=== PATIENT | female | born 2000 | race Caucasian/White ===

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

== ENCOUNTER 2022-05-11 18:01 | Emergency (ER) | payer MEDICAID, SELFPAY ==
[2022-05-11 18:02] VITALS: BP 127/74; PULSE 94; RESP 16; TEMP 36.2; O2SAT 100; BMI 21.9
--- NOTE | 2022-05-11 18:41 | EDS_ITS ---
HPI HPI - Female History of Present Illness Chief Complaint: Abd Pain Detail of Chief Complaint: Pelvic pain and vaginal bleeding. Informant: patient Pain Pain: Positive for Pelvic Pain Onset: Today Timing: Intermittent Quality: Positive for Cramping Current Severity: Mild Maximum Severity: Mild Bleeding Issue: Positive for Vaginal bleeding; Negative for Passing clots or Passing tissue Onset: Today Timing: Intermittent Current Severity: Mild Associated Symptoms Associated Symptoms: Positive for Missed Period; Negative for Dysuria, Frequency, Urgency or Hematuria Sexually: Positive for Active Control: No control P: 0 Ab: 1 Narrative Narrative: 21-year-old female G1, P0 Ab1 with having a miscarriage. Complaining of pelvic pain and vaginal bleeding today. She she missed her last menstrual period and the most recent normal menstrual period was at least 2 months ago. She denies any discharge. No dysuria. No fevers. Prior similar symptoms: Yes Recent Illness/Hospitalization: No PFSH PFSH Medical History Asthma Depression with anxiety PTSD (post-traumatic stress disorder) Substance abuse Home Medications phenazopyridine 200 mg tablet (Pyridium) 200 mg PO TID #10 tabs 05/11/22 [Rx Last Taken Unknown] sulfamethoxazole 800 mg-trimethoprim 160 mg tablet (Bactrim DS) 1 tab PO BID #14 tabs 05/11/22 [Rx Last Taken Unknown] Allergy/AdvReac Type Severity Reaction Status Date / Time Penicillins [PCN] Allergy Anaphylaxis Verified 05/11/22 18:01 Family History Sister Diabetes mellitus type 1 Grandfather Heart disease Social History Smoking Status: Current every day smoker tobacco type: cigarettes alcohol intake: never substance use type: does not use caffeine: Yes what type of physical activity do you participate in: none seatbelt use: sometimes ROS ROS ED ROS Narrative Vaginal bleeding pelvic pain. Review of Systems ROS Unobtainable: Denies due to encephalopathy Constitutional Constitutional ED: Denies chills Eyes Eyes: Denies blurry vision ENT ENT ED: Denies ear pain Cardiovascular Cardiovascular: Denies chest pain Respiratory/Chest Respiratory/Chest: Denies cough Gastrointestinal Gastrointestinal: Denies abdominal pain Genitourinary Genitourinary ED: Denies dysuria Musculoskeletal Musculoskeletal: Denies arthralgias Integumentary Denies abscess Neurologic Neurologic: Denies headache(s) Psychiatric Psychiatric: Denies anxiety Endocrine Endocrinology: Denies heat intolerance Hematologic/Lymphatic Hematologic/Lymphatic: Denies easy bleeding Allergic/Immunologic Allergic/Immunologic ED: Denies mouth swelling EXAM Physical Exam Narrative Exam Narrative: Young female no acute distress vital signs stable afebrile. H EENT exam normal. Lungs clear. Heart regular rhythm. Abdomen soft nondistended normal bowel sounds no peritoneal signs. Tender over suprapubic region. No peritoneal signs. Moving all 4 extremities. Const Vital Signs: 05/11/22 18:02 Temperature 97.2 F L Temperature Source Temporal Pulse Rate 94 Respiratory Rate 16 Blood Pressure 127/74 H Blood Pressure Mean 91 Pulse Ox 100 Oxygen Delivery Method Room Air Positive well nourished and well developed; Negative for obese, cachectic, contractures or unkempt General Appearance ED: well developed; Negative for unkempt, cachectic or contractures Nutritional Appearance: Negative for cachectic or obese HEENT Reports moist mucous membranes Negative for trauma or tenderness Eyes PERRL and EOMs intact bilaterally General Eye ED: Negative for pale conjunctiva or scleral icterus Neck no lymphadenopathy, supple and no JVD Thyroid: Negative for tender Lymph Lymphatic: Negative for other Chest Wall inspection of chest normal and palpation of chest normal Resp normal respiratory effort and clear to auscultation bilaterally Effort and Inspection: Negative for pain with movement Auscultation: Negative for rales, rhonchi or wheezes Cardio regular rate, regular rhythm, S1 normal heart sound, no murmurs and no JVD Rate: Negative for bradycardia Rhythm: Negative for abnormal rhythm GI normal to inspection, nondistended, normoactive bowel sounds, soft to palpation, non-distended and no masses; Negative for non-tender GI Narrative: Suprapubic tenderness only. Auscultation: normoactive bowel sounds Palpation: tender; Negative for guarding or rigid Back/Spine no CVA tenderness General Back: Negative for CVA tenderness Cervical Spine: Negative for cervical spine tenderness Thoracic Spine / Upper Back: Negative for thoracic spinal tenderness Lumbar Spine / Lower Back: Negative for lumbar spinal tenderness Extremity normal to inspection and full ROM General Extremety ED: Negative for edema General Extremity: Negative for edema Neuro oriented x3 Sensorium / Orientation: alert, oriented to person, oriented to place and oriented to time; Negative for confused, lethargic or stuporous Motor Exam: strength 5/5 throughout Psych mental status grossly normal Appearance: Negative for unkempt Attitude: No agitated Speech: No other Skin no rashes or lesions noted General Skin Exam: Negative for jaundice Rashes: No rashes noted MDM MDM MDM Narrative Medical decision making narrative: 21-year-old with vaginal bleeding and pelvic pain. test and UA being obtained. Exam benign. Repeat exam patient doing well. She and I went over her test results. I suspect this is just a heavy period because she missed her last several. I explained to her that the test was negative. She also has urinary tract infection. She will be started on Bactrim for 7 days. Fluids and rest. Follow-up with her assistant refinery operator Dr. Jeanine Flores if not improving. Lab Data Attestation: I reviewed the patient's lab results. Lab results narrative: Urine is consistent with urinary tract infection with positive nitrites Credi red cells 10-25 white cells and 3+ bacteria. A culture be sent. Her test is negative. Labs: Laboratory Results - last 24 hr 05/11/22 19:10 Urine Color Red Urine Clarity Cloudy Urine pH 8.0 Ur Specific [place] 1.010 Urine Protein 500 H Urine Glucose (UA) Normal Urine Ketones 5 H Urine Occult Blood 250 H Urine Nitrite Positive H Urine Bilirubin Negative Urine Urobilinogen 1 H Ur Leukocyte Esterase 100 H Urine RBC > 100 SEEN Urine WBC 10-25 SEEN Ur Squamous Epith Cells 0-5 SEEN Urine Bacteria 3+ Urine Mucus 0 SEEN Urine Test Negative Discharge Plan Triage Chief Complaint: Abd Pain ED Provider: Dirk Sung Dx/Rx/DC Orders Clinical Impression: Urinary tract infection, Abnormal vaginal bleeding Instructions: ED CYSTITIS Female Adult Prescriptions: New sulfamethoxazole-trimethoprim [Bactrim DS] 800-160 mg tablet 1 tab PO BID Qty: 14 0RF phenazopyridine [Pyridium] 200 mg tablet 200 mg PO TID Qty: 10 0RF Primary Care Provider: Care Physician,No Primary Referrals: Jeanine Flores MD [STAFF PHYSICIAN] - 1 Week if not improving Care Physician,No Primary [Primary Care Provider] - Activity Restrictions/Additional Instructions: Plenty of fluids and rest. Tylenol and Motrin for your pain. You have a urinary tract infection will start on antibiotic Bactrim you will take 1 pill twice a day for a week. A urine culture was sent that your doctor can follow-up with if not proving. The vaginal bleeding is most likely shedding the lining of the uterus since she missed her last 1-2 periods. Your test was negative. Follow-up with your assistant refinery operator if the vaginal bleeding is not improving. Disposition Disposition: Home, Self Care
[2022-05-11 19:27] LABS: Mucous, Urine 0 SEEN /hpf (<or=2+)
[2022-05-11 19:35] LABS: Color, Urine Red (Yellow); Glucose, Dipstick Normal (Normal); Ketone-Dipstick 5 mg/dl (Negative); Leukocyte Esterase-Dipstick 100 /ul (Negative); Nitrite-Dipstick Positive (Negative); Occult Blood-Urine 250 /ul (Negative); Protein-Dipstick 500 mg/dl (Negative); Urine Bilirubin Dipstick Negative (Negative); Urine Clarity Cloudy (Clear); Urine Urobilinogen 1 mg/dl (Normal)
[2022-05-11 19:40] LABS: Internal QC Validated? YES +Cl - CLEAR BKGD
[2022-05-11 19:41] LABS: Pregnancy, Urine Negative Negative
[2022-05-11 19:45] LABS: White Blood Cells 10-25 SEEN /hpf (0-5)
[2022-05-11 19:46] LABS: Bacteria 3+ /hpf (None Seen); Red Blood Cells-Urine > 100 SEEN /hpf (0-5); Squamous Epithelial Cells - UA 0-5 SEEN /hpf (5-10)
--- NOTE | 2022-05-11 20:21 | CM.ED ---
SW Note Referral Source: Case Find Referral Reason: No Primary Care Physician (PCP) SW reviewed chart and noted that patient has no PCP. SW provided patient with list of [facility] and [facility] Physician List for reference. SW also provided patient with handout ?Where to go When?. No other issues or concerns voiced at this time. SW remains available for any additional needs. Plan: Provided patient with PCP information Marcela MCKEON
[2022-05-11] MEDS: Smz/Tmp Ds Tablet 1 TABLET PO (21:27)
== END 2022-05-11 21:31 | disposition home or self-care (01) ==
PROVIDERS: Emergency Provider Emergency Medicine; Visit Provider Emergency Medicine
DX: N30.90 Cystitis, unspecified without hematuria (principal); N93.9 Abnormal uterine and vaginal bleeding, unspecified; F17.210 Nicotine dependence, cigarettes, uncomplicated
CPT/HCPCS: 81001; 81025; 99283

== ENCOUNTER 2022-05-18 23:10 | Emergency (ER) | payer MEDICAID, SELFPAY ==
[2022-05-18 23:11] VITALS: BP 124/90; PULSE 86; RESP 16; TEMP 36.5; O2SAT 100; BMI 21.8
--- NOTE | 2022-05-18 23:32 | EX.ED.DYSGE1 ---
HPI History of Present Illness Chief Complaint: Substance Abuse Informant: patient Narrative Narrative: Patient presents requesting detox. She uses up to a gram a day of heroin and fentanyl and also occasionally meth. Really does not drink alcohol. She does inject. She denies any history with infections from injection sites. Her last use was about 4 hours ago. Her last detox was in February. She states clean until about a month ago. Denies chance of being . Denies any physical complaints. Does not feel like she is in withdrawal at this point. [facility] Medical History (Updated 05/19/22 @ 00:00 by Background Daemon) Anxiety Asthma Bipolar disorder Depression Depression with anxiety PTSD (post-traumatic stress disorder) Smoker Substance abuse Home Medications phenazopyridine 200 mg tablet (Pyridium) 200 mg PO TID #10 tabs 05/11/22 [Rx Last Taken Unknown] sulfamethoxazole 800 mg-trimethoprim 160 mg tablet (Bactrim DS) 1 tab PO BID #14 tabs 05/11/22 [Rx Last Taken Unknown] Allergy/AdvReac Type Severity Reaction Status Date / Time Penicillins [PCN] Allergy Anaphylaxis Verified 05/18/22 23:13 Family History Sister Diabetes mellitus type 1 Grandfather Heart disease Social History Smoking Status: Current every day smoker tobacco type: cigarettes alcohol intake: never substance use type: does not use caffeine: Yes what type of physical activity do you participate in: none seatbelt use: sometimes ROS ROS ED Constitutional Constitutional ED: Denies chills, fever(s) or sweats Eyes Eyes: Denies change in vision ENT ENT ED: Denies rhinorrhea Cardiovascular Cardiovascular: Denies chest pain or palpitations Respiratory/Chest Respiratory/Chest: Denies cough or dyspnea Gastrointestinal Gastrointestinal: Denies diarrhea, nausea or vomiting Genitourinary Genitourinary ED: Denies hematuria Musculoskeletal Musculoskeletal: Denies myalgias Integumentary Denies rash Neurologic Neurologic: Denies headache(s) Psychiatric Psychiatric: Reports anxiety; Denies suicidal ideation Endocrine Endocrinology: Denies polydipsia or polyuria Allergic/Immunologic Allergic/Immunologic ED: Denies urticaria EXAM Physical Exam Const Vital Signs: 05/18/22 23:11 Temperature 97.7 F L Temperature Source Temporal Pulse Rate 86 Respiratory Rate 16 Blood Pressure 124/90 H Blood Pressure Mean 101 Pulse Ox 100 Oxygen Delivery Method Room Air Positive well nourished and well developed Constitutional Narrative: Patient is sitting very quietly in bed. General Appearance ED: well developed and NAD HEENT Reports moist mucous membranes HEENT Narrative: No noted rhinorrhea. Eyes EOMs intact bilaterally General Eye ED: Negative for scleral icterus Neck no JVD Resp normal respiratory effort and clear to auscultation bilaterally Cardio regular rate and regular rhythm GI normal to inspection, nondistended, normoactive bowel sounds and non-tender Back/Spine no CVA tenderness Neuro oriented x3 Psych Psych Narrative: Mildly flat affect. Skin Skin Narrative: Patient has multiple abrasions on her forearm. She states she does cut herself but is not suicidal. She has track rice but these do not look to be infected. MDM MDM MDM Narrative Medical decision making narrative: I discussed case with the hospitalist. We were checking urine tox UA and . Evidently patient got up and left. Discharge Plan Triage Chief Complaint: Substance Abuse ED Provider: Leobardo León Dx/Rx/DC Orders Clinical Impression: Abuse of both oxycodone and heroin, Methamphetamine abuse, Fentanyl dependence, Desire for detoxification Prescriptions: No Action sulfamethoxazole-trimethoprim [Bactrim DS] 800-160 mg tablet 1 tab PO BID Qty: 14 0RF phenazopyridine [Pyridium] 200 mg tablet 200 mg PO TID Qty: 10 0RF Primary Care Provider: Care Physician,No Primary Referrals: Nolan Fox MD [STAFF PHYSICIAN] - As Needed Care Physician,No Primary [Primary Care Provider] - Disposition Disposition: Elopement Discharge Date/Time: 05/19/22 00:01
--- NOTE | 2022-05-18 23:55 | ED.RN ---
during assessment the pt was very sleepy and not answering questions, then suddenly started crying and stated that she was unable to go thru with the detox and had to leave. pt registered and then discharged
== END 2022-05-19 00:01 | disposition left against medical advice (07) ==
PROVIDERS: Emergency Provider Emergency Medicine; Visit Provider Emergency Medicine
DX: F11.20 Opioid dependence, uncomplicated (principal); F15.10 Other stimulant abuse, uncomplicated; X78.9XXA Intentional self-harm by unspecified sharp object, initial encounter; S50.819A Abrasion of unspecified forearm, initial encounter; F17.210 Nicotine dependence, cigarettes, uncomplicated
CPT/HCPCS: 99282

== ENCOUNTER → 2024-01-03 | Outpatient (CLI) | payer OTHER, MEDICAID, SELFPAY ==
--- OUTSIDE RECORDS SUMMARY | 2024-01-03 10:02 | XMS RPT_ITS | CCD ---
Author Name Unknown Address [address] [place] [address] Organization [facility] Care Team Providers Care Panel Edge Painter Name Role Phone Epifanio Quiroga Primary Care Provider TRIPP CARTER, DR MINA Aguero Primary Care Physician Epifanio Quiroga Primary Care Provider NATY CARTER, THEA Loving Attending Unavailab Shirley BILLY, DR. MINA Aguero Primary Care Lala ALMAGUER MD., DR. MINA Aguero Primary Care HUSSAIN Peterson Attending Unavailable PHYSICIAN, NONE Primary Care Physician EPIFANIO Givens Primary Care Unavailable Allergies Allergy Classification Reported Allergen(s) Allergy Type Date of Onset Reaction(s) Facility (5 sources) Seasonal allergy; Translations: [SEASONAL ALLERGIES] Allergy to substance 08-02-2012 Cough [facility] (2 sources) Penicillins; Translations: [penicillins] Drug allergy [facility] Medications Current Medications Medication Drug Class(es) Dates Sig (Normalized) Sig (Original) albuterol MDI (90 mcg/inh) CFC free inhalation aerosol (3 sources) Start: 05-15-2014 take 1 puff(s) by inhalation once as needed for wheezing albuterol MDI (90 mcg/inh) CFC free inhalation aerosol 1 puff(s), Inhalation, Once, PRN for wheezing, # 18 g, 0 Refill(s) Start Date: 05/15/14 Status: Ordered cephalexin 500 mg oral capsule (2 sources) Cephalosporin Antibacterial Start: 07-04-2023 End: 07-09-2023 cephalexin 500 mg oral capsule Dose : 500 mg = 1 cap(s), Oral, q6hr, X 5 day(s), # 20 cap(s), 0 Refill(s), 07/09/23 3:51:00 AM EDT, 67 Start Date: 07/04/23 Stop Date: 07/09/23 Status: Ordered Completed/Discontinued Medications Medication Drug Class(es) Dates Sig (Normalized) Sig (Original) [id number] 200 actuat albuterol 0.09 mg/actuat metered dose inhaler (4 sources) beta2-Adrenergic Agonist Start: 01-31-2022 take 2 puff(s) by inhalation four times daily as needed albuterol HFA (VENTOLIN HFA) 90 mcg/actuation inhaler Inhale 2 Puffs as instructed four times daily as needed. 1 Inhaler 0 01/31/2022 Active Problems Active Problems Problem Classification Problem Date Documented Date Episodic/Chronic Adjustment disorders (4 sources) Adjustment disorder with anxious mood; Translations: [Adjustment disorder with anxiety] Onset: 04-07-2017 04-07-2017 Chronic Asthma (7 sources) Asthma; Translations: [Unspecified asthma, uncomplicated] Onset: 11-24-2012 11-24-2012 Chronic Genitourinary symptoms and ill-defined conditions (1 source) Increased frequency of urination; Translations: [Frequency of micturition] Episodic Hepatitis (2 sources) Acute viral hepatitis, unspecified; Translations: [Unspecified viral hepatitis without hepatic coma] Onset: 10-06-2023 Episodic Immunizations and screening for infectious disease (2 sources) Exposure to sexually transmissible disorder; Translations: [Contact with and (suspected) exposure to infections with a predominantly sexual mode of transmission] Onset: 10-06-2023 Episodic Inflammatory diseases of female pelvic organs (1 source) Bacterial vaginosis; Translations: [Acute vaginitis] Episodic Open wounds of extremities (1 source) Laceration of hand without foreign body; Translations: [Laceration without foreign body of unspecified hand, initial encounter] Onset: 07-04-2023 Episodic Other female genital disorders (1 source) Vaginal discharge; Translations: [Other specified noninflammatory disorders of vagina] Episodic Other injuries and conditions due to external causes (1 source) Traumatic AND/OR non-traumatic injury; Translations: [Other injury of unspecified body region, initial encounter] Onset: 07-04-2023 Episodic Other upper respiratory disease (4 sources) Allergic rhinitis; Translations: [Allergic rhinitis, unspecified] Onset: 08-14-2013 08-14-2013 Chronic Unclassified (1 source) Unknown / UNK(Unknown) Onset: 03-15-2018 Urinary tract infections (1 source) Urinary tract infectious disease; Translations: [Urinary tract infection, site not specified] Onset: 07-03-2022 Episodic Past or Other Problems Problem Classification Problem Date Documented Da te Episodic/Chronic Sprains and strains (4 sources) Strain of back muscle; Translations: [Strain of muscle, fascia and tendon of lower back, initial encounter] Onset: 11-07-2016 11-07-2016 Episodic Unclassified (1 source) SORE THROAT/TRIAGE Onset: 03-15-2018 Results Test Name Value Interpretation Reference Range Facil ity Vital Signs Date Time Vital Sign Value Performing Clinician Facility 07-04-2023 03:06-0400 Blood Pressure Cuff Size JESSIKA BANEGAS MD [facility] 07-04-2023 03:06-0400 Blood Pressure Location JESSIKA BANEGAS MD [facility] 07-04-2023 03:06-0400 Blood Pressure Method JESSIKA BANEGAS MD [facility] 07-04-2023 03:06-0400 Body height 167.6 cm JESSIKA BANEGAS MD [facility] 07-04-2023 03:06-0400 Body temperature 98.24 [degF] JESSIKA BANEGAS MD [facility] 07-04-2023 03:06-0400 Body weight 67 kg JESSIKA BANEGAS MD [facility] 07-04-2023 03:06-0400 Diastolic Blood Pressure Non-Invasive 83 1 JESSIKA BANEGAS MD [facility] 07-04-2023 03:06-0400 Heart rate 88 /min JESSIKA BANEGAS MD [facility] 07-04-2023 03:06-0400 Reason For Taking VItal Signs JESSIKA BANEGAS MD [facility] 07-04-2023 03:06-0400 Respiratory rate 16 /min JESSIKA BANEGAS MD [facility] 07-04-2023 03:06-0400 Systolic Blood Pressure Non-Invasive 123 1 JESSIKA BANEGAS MD [facility] 07-03-2022 21:36-0400 Diastolic blood pressure 73 mm[Hg] HUSSAIN FROMMELT DO [facility] 07-03-2022 21:36-0400 Heart rate 84 /min HUSSAIN MEDRANOMELT DO [facility] 07-03-2022 21:36-0400 Respiratory rate 20 /min HUSSAIN FROMMELT DO [facility] 07-03-2022 21:36-0400 Systolic blood pressure 108 mm[Hg] HUSSAIN FROMMELT DO [facility] 07-03-2022 19:34-0400 Body height 165.1 cm HUSSAIN FROMMELT DO [facility] 07-03-2022 19:34-0400 Body temperature 98.24 [degF] HUSSAIN FROMMELT DO [facility] 07-03-2022 19:34-0400 Body weight 58.8 kg HUSSAIN FROMMELT DO [facility] 07-03-2022 19:34-0400 Diastolic blood pressure 85 mm[Hg] HUSSAIN AKHTART DO [facility] 07-03-2022 19:34-0400 Heart rate 92 /min HUSSAIN AKHTART DO [facility] 07-03-2022 19:34-0400 Respiratory rate 18 /min HUSSAIN KAPOOR DO [facility] 07-03-2022 19:34-0400 Systolic blood pressure 121 mm[Hg] HUSSAIN KAPOOR DO [facility] 05-18-2022 16:52-0400 Body temperature 98.71 [degF] Cait Marcell GANG TAILER.[employer]USS PULLER HELPER Work Phone: [facility] 05-18-2022 16:52-0400 Body weight 63.41 kg Cait Marcell GANG TAILER.[employer] P[employer]ER HELPER Work Phone: [facility] 05-18-2022 16:52-0400 Diastolic blood pressure 76 mm[Hg] Cait Marcell GANG TAILER.[employer]USS PULLER HELPER Work Phone: [facility] 05-18-2022 16:52-0400 Heart rate 68 /min Cait Marcell GANG TAILER.[employer]USS P[employer]ER HELPER Work Phone: [facility] 05-18-2022 16:52-0400 Respiratory rate 21 /min Cait Marcell GANG TAILER.[employer]USS PULLER HELPER Work Phone: [facility] 05-18-2022 16:52-0400 SaO2% (BldA) [Mass fraction] 100 % Cait Marcell GANG TAILER.[employer]USS PULLER HELPER Work Phone: [facility] 05-18-2022 16:52-0400 Systolic blood pressure 104 mm[Hg] Cait Marcell GANG TAILER.[employer]USS PULLER HELPER Work Phone: [facility] 05-07-2022 14:52-0400 Body height 162.[address] THEA ALFONSO MD [facility] 05-07-2022 14:52-0400 Body temperature 98.42 [degF] DR THEA ALFONSO MD [facility] 05-07-2022 14:52-0400 Body weight 65.[address] THEA ALFONSO MD [facility] 05-07-2022 14:52-0400 Diastolic blood pressure 78 mm[Hg] DR THEA ALFONSO MD [facility] 05-07-2022 14:52-0400 Heart rate 93 /min DR THEA ALFONSO MD [facility] 05-07-2022 14:52-0400 Height ZScore -0.11 DR THEA ALFONSO MD [facility] Encounters Encounter Date Encounter Type Care Provider Facility Start: 10-06-2023 End: 10-07-2023 ambulatory EPIFANIO EASTMAN Facility:[id number] Start: 07-04-2023 End: 07-04-2023 Emergency department patient visit JESSIKA BANEGAS MD [facility] Start: 07-03-2022 End: 07-04-2022 Emergency department patient visit DR. MINA ALMAGUER MD. Facility:B Start: 07-03-2022 End: 07-03-2022 Emergency department patient visit HUSSAIN KAPOOR DO [facility] Start: 05-19-2022 Telephone encounter Jackie cherry PA-C Work Phone: [facility] Procedures Date Procedure Procedure Detail Performing Clinician Start: 01-31-2022 End: 01-31-2022 Urnls dip stick/tablet rgnt auto w/o microscopy [facility] Provider Start: 04-04-2017 Adult depression screening assessment Karen Quinn PA-C Work Phone: Plan of Treatment Date Care Activity Detail Author Start: 09-20-2023 Urine microalbumin profile DTAP,TDAP,TD (7 - Td or Tdap) [facility] Start: 05-18-2023 CHLAMYDIA SCREENING (18-24) CHLAMYDIA SCREENING (18-24) [facility] Start: 05-18-2023 GC (GONORRHEA) SCREE GERRI (18-24) GC (GONORRHEA) SCREENING (18-24) [facility] Start: 03-31-2023 CHLAMYDIA SCREENING (18-24) CHLAMYDIA SCREENING (18-24) [facility] Start: 03-31-2023 GC (GONORRHEA) SCREE GERRI (18-24) GC (GONORRHEA) SCREENING (18-24) [facility] Start: 06-30-2022 Influenza vaccination [facility] Start: 05-18-2022 End: 07-18-2022 Hepatitis B virus surface Ab [Presence] in Serum by Immunoassay HEP B SURF AG SCRN Lab Routine Exposure to STD Vaginal discharge Expected: 05/18/2022, Expires: 07/18/2022 [facility] Work Phone: Immunizations Immunization Date Immunization Notes Care Provider Fa [facility] 07-04-2023 tetanus toxoid, redu ventura diphtheria toxoid, and acellular pertussis vaccine, adsorbed JESSIKA BANEGAS MD [facility] 04-02-2020 hepatitis A vaccine, pediatric/adolescent dosage, 2 dose schedule Karen Quinn PA-C Work Phone: [facility] Work Phone: 04-02-2020 meningococcal polysaccharide (groups A, C, Y and W-135) diphtheria toxoid conjugate vaccine (MCV4P) Karen Quinn PA-C Work Phone: [facility] Work Phone: 09-25-2015 human papilloma viru s vaccine, quadrivalent Karen Quinn PA-C Work Phone: [facility] 09-20-2013 human papilloma viru s vaccine, quadrivalent Karen Quinn PA-C Work Phone: [facility] 09-20-2013 Meningococcal, MCV4, unspecified conjugate formulation(groups A, C, Y and W-135) Karen Bogner PA-C Work Phone: [facility] 09-20-2013 tetanus toxoid, redu ventura diphtheria toxoid, and acellular pertussis vaccine, adsorbed Karen Bogner PA-C Work Phone: [facility] 09-20-2013 varicella virus vaccine Iron adette Bogner PA-C Work Phone: [facility] 08-02-2012 influenza virus vacc ine, unspecified formulation Karen Bogner PA-C Work Phone: [facility] 05-25-2007 diphtheria, tetanus toxoids and acellular pertussis vaccine Karen Bogner PA-C Work Phone: [facility] Work Phone: 05-25-2007 measles, mumps and rubella virus vaccine Karen Bogner PA-C Work Phone: [facility] Work Phone: 05-25-2007 poliovirus vaccine, inactivated Karen Bogner PA-C Work Phone: [facility] Work Phone: 05-25-2007 varicella virus vaccine Iron adette Bogner PA-C Work Phone: [facility] Work Phone: 12-05-2005 pneumococcal conjuga te vaccine, 7 valent Karen Bogner PA-C Work Phone: [facility] Work Phone: 08-17-2004 diphtheria, tetanus toxoids and acellular pertussis vaccine Karen Bogner PA-C Work Phone: [facility] Work Phone: 06-27-2003 haemophilus influenz ae type b vaccine, HbOC conjugate Karen Bogner PA-C Work Phone: [facility] Work Phone: 06-27-2003 measles, mumps and rubella virus vaccine Karen Bogner PA-C Work Phone: [facility] Work Phone: 06-27-2003 varicella virus vaccine Iron adette Bogner PA-C Work Phone: [facility] Work Phone: 04-02-2003 hepatitis B vaccine, pediatric or pediatric/adolescent dosage Karen Bogner PA-C Work Phone: [facility] Work Phone: 04-02-2003 pneumococcal conjuga te vaccine, 7 valent Karen Bogner PA-C Work Phone: [facility] Work Phone: 01-03-2003 diphtheria, tetanus toxoids and acellular pertussis vaccine Karen Bogner PA-C Work Phone: [facility] Work Phone: 01-03-2003 haemophilus influenz ae type b vaccine, HbOC conjugate Karen Bogner PA-C Work Phone: [facility] Work Phone: 01-03-2003 pneumococcal conjuga te vaccine, 7 valent Karen Bogner PA-C Work Phone: [facility] Work Phone: 01-03-2003 poliovirus vaccine, inactivated Karen Bogner PA-C Work Phone: [facility] Work Phone: 2002 diphtheria, tetanus toxoids and acellular pertussis vaccine Karen Bogner PA-C Work Phone: [facility] Work Phone: 2002 haemophilus influenz ae type b vaccine, HbOC conjugate Karen Bogner PA-C Work Phone: [facility] Work Phone: 2002 pneumococcal conjuga te vaccine, 7 valent Karen Bogner PA-C Work Phone: [facility] Work Phone: 2002 poliovirus vaccine, inactivated Karen Bogner PA-C Work Phone: [facility] Work Phone: 2002 diphtheria, tetanus toxoids and acellular pertussis vaccine Karen Bogner PA-C Work Phone: [facility] Work Phone: 2002 haemophilus influenz ae type b vaccine, HbOC conjugate Karen Bogner PA-C Work Phone: [facility] Work Phone: 2002 hepatitis B vaccine, pediatric or pediatric/adolescent dosage Karen Bogner PA-C Work Phone: [facility] Work Phone: 2002 poliovirus vaccine, inactivated Karen Bogner PA-C Work Phone: [facility] Work Phone: 2002 hepatitis B vaccine, pediatric or pediatric/adolescent dosage Karen Bogner PA-C Work Phone: [facility] Work Phone: Payers Date Payer Category Payer Medicaid [id number] 2022 Unknown [id number] 2022 Self-pay 2021 Medicaid [id number] 2013 Unknown [id number] 1962 Unknown [id number] 1962 Unknown [id number] Social History Date Type Detail Facility Start: 01-07-2019 Tobacco smoking stat [facility] Occasional tobacco smoker [facility] Start: 01-07-2019 End: 03-31-2022 Tobacco use and exposure Smokeless tobacco non-user [facility] Start: 01-31-2022 End: 05-18-2022 Alcohol intake Current non-drinker of alcohol (finding) [facility] Start: 12-14-2012 Tobacco Comment parents smoke inside [facility] Start: 2002 Sex Assigned At Not on file C [facility] Start: 03-31-2022 Tobacco smoking stat us GAIS Smokes tobacco daily [facility] Start: 03-31-2022 Cigarettes smoked current (pack per day) - Reported 1 [facility] Start: 03-21-2022 End: 03-31-2022 Exposure to SARS-CoV-2 (event) Not sure [facility] Start: 05-07-2022 Tobacco smoking status Heavy t obacco smoker (finding) [facility] Sex Assigned At Sex [facility] Functional Status Date Assessment Result Facility 07-04-2023 Functional Status Independent [facility] 07-03-2022 Functional Status Room check performed [facility] 07-03-2022 Functional Status [facility] 05-07-2022 Functional Status Resting [facility] Mental Status Date Assessment Result Facility 07-04-2023 Mental Status Oriented x 4 [facility] 07-03-2022 Mental Status Oriented x 4 [facility] 07-03-2022 Mental Status [facility] 05-07-2022 Mental Status Orientation Oriented x 4 [facility] Clinical Notes 11-29-2021 to 07-04-2023 Telephone Encounter - Jenny Caicedo LPN - 05/24/2022 1:27 PM EDTTelephone Encounter - Magdalena Mullen - 05/24/2022 8:17 AM EDTTelephone Encounter - Magdalena Mullen - 05/23/2022 10:59 AM EDT Note Date & Type Note Facility 07-04-2023 Hospital Discharg e instructions Patient Education 07/04/2023 03:50:45 Tendon Laceration Tendon Laceration A tendon is a thick cord that joins muscle to bone and causes the joints to bend and straighten. One of your tendons has been cut. A tendon cut may be partial or complete. A complete cut of the tendon and a severe partial cut will need stitches (sutures) in the tendon. Smaller cuts in the tendon don't require stitches, but the cut in the skin will need to be closed with stitches or monica. A cut tendon takes about 6 weeks to regain its full strength. Forceful use of the tendon too soon could cause the weakened tendon to tear apart. Antibiotics may be prescribed to reduce the risk of infection in the tendon. Some tendons are located close to the nerves, therefore, it is possible to bruise or cut a nerve when you injure a tendon. This may cause numbness or weakness of the hand or foot. Because of local pain and swelling at the time of injury it can be difficult to fully assess nerve function. If you notice numbness or weakness that persists, tell your doctor. A nerve repair can be done 5 to 10 days after injury. Home care Keep the injured part elevated during the first 48 hours to reduce swelling and pain. If a splint was applied, leave it in place until your next exam (unless told otherwise). Keep the part dry when bathing by covering it in a plastic bag sealed with a rubber band at the top end. If no splint was applied, change the bandage after 24 hours and begin cleaning the wound once a day with soap and water. After removing the bandage, wash the area with soap and water. Use a wet cotton swab to loosen and remove any blood or crust that forms. After cleaning, apply a thin layer of [id number] antibiotic ointment. This will keep the wound clean and make it easier to remove the stitches or monica. Reapply a fresh bandage. Remove the bandage to shower as usual after the first 24 hours, but do not soak the area in water (no swimming) until the stitches or monica are removed. If antibiotics were prescribed, take them as directed until they are gone or you are told to stop. Take medicines for pain as directed by the healthcare provider. If you are not current on your vaccination and the object that caused the cut may lead to tetanus, you may be given a tetanus shot. Follow-up care You may be referred to a surgeon to evaluate your injury and possibly perform a definitive repair. If you are, it is important that you keep the appointment. Best results occur when the tendon is repaired in 7 to 10 days. Stitches placed in the tendon will not need to be removed. Stitches or monica placed in the skin will be removed in 7 to 10 days. Be sure to keep your appointment for removal. At your follow up visit, talk to your doctor about when to begin exercising the tendon in order to prevent stiffness. When to seek medical advice Call your healthcare provider right away if any of these occur: Wound bleeding not controlled by direct pressure Signs of infection, including increasing pain in the wound, increasing wound redness or swelling, or pus or bad odor coming from the wound Fever of 100.4 F (38 C) or higher or as directed by your healthcare provider Stitches or monica come apart or fall out Wound edges re-open Wound changes colors Numbness occurs around the wound Decreased movement around the injured area Persistent numbness or weakness in the injured extremity [id number] [employer]. [address] [place] [address]. All rights reserved. This information is not intended as a substitute for professional medical care. Always follow your healthcare professional's instructions. 07/04/2023 03:50:35 Laceration, Hand: All Closures Hand Laceration: All Closures A laceration is a cut through the skin. Deep cuts usually require stitches. Minor cuts may be closed with surgical tape or skin adhesive. X-rays may be done if something may have entered the skin through the cut, such as broken glass. You may also be given a tetanus shot if you are not up to date on this vaccination and the object that cut you may carry tetanus. Home care Your healthcare provider may prescribe an antibiotic. This is to help prevent infection. Follow all instructions for taking this medicine. Take the medicine every day until it is gone or you are told to stop. You should not have any left over. The healthcare provider may prescribe medicines for pain. Follow instructions for taking them. Follow the healthcare provider s instructions on how to care for the cut. Keep the wound clean and dry. Don't get the wound wet until you are told it is OK to do so. If the bandage gets wet, remove it. Gently pat the wound dry with a clean cloth. Then put on a clean, dry bandage. To help prevent infection, wash your hands with soap and water before and after caring for the wound. Caring for stiches: Once you no longer need to keep the stitches dry, clean the wound daily. First, remove the bandage. Then wash the area gently with soap and warm water, or as directed by the healthcare provider. Use a wet cotton swab to loosen and remove any blood or crust that forms. After cleaning, apply a thin layer of antibiotic ointment if advised. Then put on a new bandage unless you are told not to. Caring for skin glue: Don t put apply liquid, ointment, or cream on the wound while the glue is in place. Avoid activities that cause heavy sweating. Protect the wound from sunlight. Don't scratch, rub, or pick at the adhesive film. Don't place tape directly over the film. The glue should peel off within 5 to 10 days. Caring for surgical tape: Keep the area dry. If it gets wet, blot it dry with a clean towel. Surgical tape usually falls off within 7 to 10 days. If it has not fallen off after 10 days, you can take it off yourself. Put mineral oil or petroleum jelly on a cotton ball and gently rub the tape until it is removed. Once you can get the wound wet, you may shower as usual, but don't soak the wound in water. This means no tub baths or swimming. Even with proper treatment, a wound infection may sometimes occur. Check the wound daily for signs of infection listed below. Follow-up care Follow up with your healthcare provider, or as advised. If you have stitches, be sure to return as directed to have them removed. When to seek medical advice Call your healthcare provider right away if any of these occur: Wound bleeding not controlled by direct pressure Signs of infection, including increasing pain in the wound, increasing wound redness or swelling, or pus or bad odor coming from the wound Fever of 100.4 F (38. C) o higher, or as directed by your healthcare provider Stitches come apart or fall out or surgical tape falls off before 7 days Wound edges reopen Wound changes colors Numbness or weakness in the affected hand Decreased movement of the hand [id number] [employer]. [address] [place] [address]. All rights reserved. This information is not intended as a substitute for professional medical care. Always follow your healthcare professional's instructions. Follow Up Care 07/04/2023 03:03:49 With:CELY HOPPER Address: [address] [phone] Business (1) When:2-4 days Comments:Schedule appointment as soon as possibleCall this am for follow up for thumb extensor tendon lacerationWash daily and apply bacitracin. Splint till seen. Sutures out in 10 days unless told otherwise by follow up doctor With:LINDA ELLIS Address: [address] [place] [address] [place] [address] [phone] Business (1) When:2-4 days Comments:Schedule appointment as soon as possibleCall this am for follow up for l thumb extensor tendon laceration With:AMIE PHYSICIAN Address:Unknown When:2-4 days [facility] 07-04-2023 Note Discharge Instructions Thank you for allowing [facility] to assist you with your healthcare needs. The following is important discharge information regarding your hospital visit. Diagnosis from Today's Visit Hand laceration Laceration of hand Tendon laceration What to Do Next Instructions from Your Care Team No qualifying data available. Post Acute Orders No qualifying data available. You Need to Schedule the Following Appointments Follow Up with CELY HOPPER When Within 2-4 days Why: Schedule appointment as soon as possible Call this am for follow up for thumb extensor tendon laceration Wash daily and apply bacitracin. Splint till seen. Sutures out in 10 days unless told otherwise by follow up doctor Where: [address] [address] [phone] Business (1) Follow Up with LINDA ELLIS When Within 2-4 days Why: Schedule appointment as soon as possible Call this am for follow up for l thumb extensor tendon laceration Where: [address] [place] [address] [place] [address] [phone] Business (1) Follow Up with NONE PHYSICIAN When Within 2-4 days Allergies penicillins Medications Please ask your primary doctor or pharmacist before taking any other medication not listed, including over the counter drugs, herbal medications, vitamins and or supplements as they may interact with your home medications. What How Much When Instructions Last Dose New cephalexin (cephalexin 500 mg oral capsule) 1 cap by mouth Every 6 hours Duration: 5 Days Printed Prescription Unchanged albuterol (albuterol MDI (90 mcg/ inh) CFC free inhalation aerosol) 1 puff(s) by inhalation Once as needed for for wheezing Unchanged cetirizine (Zyrtec 5 mg oral tablet (NF)) 1 tab(s) by mouth Every day as needed for for allergy symptoms Unchanged ibuprofen (Motrin 400 mg oral tablet) 1 tab(s) by mouth Every 4 hours as needed for for pain Please take this list to your next doctor s visit. Bring all medications you take, including over the counter medications, herbals and other supplements with you to your doctor s visit. Patients and families are reminded to discard old lists and to update any records with all medication providers or retail pharmacies. Education Materials Tendon Laceration A tendon is a thick cord that joins muscle to bone and causes the joints to bend and straighten. One of your tendons has been cut. A tendon cut may be partial or complete. A complete cut of the tendon and a severe partial cut will need stitches (sutures) in the tendon. Smaller cuts in the tendon don't require stitches, but the cut in the skin will need to be closed with stitches or monica. A cut tendon takes about 6 weeks to regain its full strength. Forceful use of the tendon too soon could cause the weakened tendon to tear apart. Antibiotics may be prescribed to reduce the risk of infection in the tendon. Some tendons are located close to the nerves, therefore, it is possible to bruise or cut a nerve when you injure a tendon. This may cause numbness or weakness of the hand or foot. Because of local pain and swelling at the time of injury it can be difficult to fully assess nerve function. If you notice numbness or weakness that persists, tell your doctor. A nerve repair can be done 5 to 10 days after injury. Home care Keep the injured part elevated during the first 48 hours to reduce swelling and pain. If a splint was applied, leave it in place until your next exam (unless told otherwise). Keep the part dry when bathing by covering it in a plastic bag sealed with a rubber band at the top end. If no splint was applied, change the bandage after 24 hours and begin cleaning the wound once a day with soap and water. After removing the bandage, wash the area with soap and water. Use a wet cotton swab to loosen and remove any blood or crust that forms. After cleaning, apply a thin layer of gxnn-vhm-nqroock antibiotic ointment. This will keep the wound clean and make it easier to remove the stitches or monica. Reapply a fresh bandage. Remove the bandage to shower as usual after the first 24 hours, but do not soak the area in water (no swimming) until the stitches or monica are removed. If antibiotics were prescribed, take them as directed until they are gone or you are told to stop. Take medicines for pain as directed by the healthcare provider. If you are not current on your vaccination and the object that caused the cut may lead to tetanus, you may be given a tetanus shot. Follow-up care You may be referred to a surgeon to evaluate your injury and possibly perform a definitive repair. If you are, it is important that you keep the appointment. Best results occur when the tendon is repaired in 7 to 10 days. Stitches placed in the tendon will not need to be removed. Stitches or monica placed in the skin will be removed in 7 to 10 days. Be sure to keep your appointment for removal. At your follow up visit, talk to your doctor about when to begin exercising the tendon in order to prevent stiffness. When to seek medical advice Call your healthcare provider right away if any of these occur: Wound bleeding not controlled by direct pressure Signs of infection, including increasing pain in the wound, increasing wound redness or swelling, or pus or bad odor coming from the wound Fever of 100.4 F (38 C) or higher or as directed by your healthcare provider Stitches or monica come apart or fall out Wound edges re-open Wound changes colors Numbness occurs around the wound Decreased movement around the injured area Persistent numbness or weakness in the injured extremity [id number] [employer]. [address] [place] [address]. All rights reserved. This information is not intended as a substitute for professional medical care. Always follow your healthcare professional's instructions. Hand Laceration: All Closures A laceration is a cut through the skin. Deep cuts usually require stitches. Minor cuts may be closed with surgical tape or skin adhesive. X-rays may be done if something may have entered the skin through the cut, such as broken glass. You may also be given a tetanus shot if you are not up to date on this vaccination and the object that cut you may carry tetanus. Home care Your healthcare provider may prescribe an antibiotic. This is to help prevent infection. Follow all instructions for taking this medicine. Take the medicine every day until it is gone or you are told to stop. You should not have any left over. The healthcare provider may prescribe medicines for pain. Follow instructions for taking them. Follow the healthcare provider s instructions on how to care for the cut. Keep the wound clean and dry. Don't get the wound wet until you are told it is OK to do so. If the bandage gets wet, remove it. Gently pat the wound dry with a clean cloth. Then put on a clean, dry bandage. To help prevent infection, wash your hands with soap and water before and after caring for the wound. Caring for stiches: Once you no longer need to keep the stitches dry, clean the wound daily. First, remove the bandage. Then wash the area gently with soap and warm water, or as directed by the healthcare provider. Use a wet cotton swab to loosen and remove any blood or crust that forms. After cleaning, apply a thin layer of antibiotic ointment if advised. Then put on a new bandage unless you are told not to. Caring for skin glue: Don t put apply liquid, ointment, or cream on the wound while the glue is in place. Avoid activities that cause heavy sweating. Protect the wound from sunlight. Don't scratch, rub, or pick at the adhesive film. Don't place tape directly over the film. The glue should peel off within 5 to 10 days. Caring for surgical tape: Keep the area dry. If it gets wet, blot it dry with a clean towel. Surgical tape usually falls off within 7 to 10 days. If it has not fallen off after 10 days, you can take it off yourself. Put mineral oil or petroleum jelly on a cotton ball and gently rub the tape until it is removed. Once you can get the wound wet, you may shower as usual, but don't soak the wound in water. This means no tub baths or swimming. Even with proper treatment, a wound infection may sometimes occur. Check the wound daily for signs of infection listed below. Follow-up care Follow up with your healthcare provider, or as advised. If you have stitches, be sure to return as directed to have them removed. When to seek medical advice Call your healthcare provider right away if any of these occur: Wound bleeding not controlled by direct pressure Signs of infection, including increasing pain in the wound, increasing wound redness or swelling, or pus or bad odor coming from the wound Fever of 100.4 F (38. C) o higher, or as directed by your healthcare provider Stitches come apart or fall out or surgical tape falls off before 7 days Wound edges reopen Wound changes colors Numbness or weakness in the affected hand Decreased movement of the hand [phone] [employer]. [address] [place] [address]. All rights reserved. This information is not intended as a substitute for professional medical care. Always follow your healthcare professional's instructions. Additional Information VACCINATE! IT SAVES LIVES! Members of the community who have not yet received the COVID-19 vaccine and would like to receive it can visit one of [facility] vaccine clinics. There are many vaccine clinic locations within the [facility]. For locations and available times, please visit [email or web address] .[email or web address] It is important to note that some COVID mobile vaccine clinics are held outdoors and may be canceled in rainy or stormy conditions. To learn more about pediatric vaccinations (ages 5-11), we invite you to visit the [facility] webpage. [email or web address]/ pages/[email or web address]-Icloh-Gsslnlqyvgt-Fr [email or web address]-[email or web address].html To learn more about the COVID-19 vaccine, we invite you to visit the CDC website for a list of frequently asked questions. https://www.cdc.gov/coronavirus /2019-ncov/vaccines/faq.html [facility] Patient [facility] Access Instructions: Stay connected with your healthcare team and access your personal medical information anytime with the [facility] Patient Portal. If you would like a full copy of your medical records please contact the [facility] Medical Records Department Monday through Monday between 8a.m. and 4:30p.m. Please follow the directions below to access the portal: 1.Access the email account you provided upon registration to the [facility].2.Look for an invitation email from [facility].3.Open the email and access the invitation link: Accept Invitation to [facility]4.Fill in the required grijalva to create your account. Sign into [email or web address] with your username and password that you created in the above steps to stay up to date. You can then view a summary of results, a summary of your visits, and the ability to download your summaries to your computer or send the information securely to a physician. Remember that your healthcare information is confidential, so carefully consider who you will allow to register on the [facility] Patient Portal for access to your information. You can also access the [facility] Patient Portal on the [employer]. Simply click on Health Records under Health Data and then click on the [employer] logo. HOW TO SAFELY DISPOSE OF PRESCRIPTION MEDICATIONS Please use one of the following methods to safely dispose of your unused medications. 1.Use a drug disposal kit: the drug disposal pouch allows you to safely discard your old and unused drugs. Ask your nurse to give you one when you are discharged.2.Visit a local take-back location: Many local pharmacies and police departments have programs that collect old and unwanted prescription drugs. Call your local pharmacy or go to http://GameSalad.CelebCalls/7W6Dx5p to find one close to you.3.Make use of household items: Use cat litter or old coffee grounds to dispose medications if other options are not available. Mix your drugs with these household products, seal them in an airtight container and throw it into the garbage. Call [facility]: [phone] to be sure your drugs can be disposed of in this way. Some medicines may require a different approach.4.Never flush your medications down the toilet. IF YOU HAVE BEEN PRESCRIBED AN OPIOIDS FOR PAIN If you have been prescribed an opioid (such as hydrocodone, oxycodone or morphine), it is critical to understand the possible side effects and risks of opioid pain medications. Even when taken as directed, opioids can have several side effects including: Tolerance, meaning you might need to take more of a medication for the same pain relief. Nausea, vomiting and/or constipation. Sleepiness, dizziness, dry mouth, confusion, depression or itching. Physical dependence, meaning you have withdrawal symptoms when a medication is stopped ? this can develop within a few days. KNOW YOUR RESPONSIBILITIES It is important to know exactly how much and how often to take the opioid pain medications you are prescribed. Never take opioids in higher amounts or more often than prescribed. Do not combine opioids with alcohol or other drugs that cause drowsiness, such as benzodiazepines, also known as benzos, including diazepam and alprazolam, muscle relaxants or sleep aids. Never sell or share prescription opioids. This is illegal. Store opioids in a secure place and out of reach of others (including children, family, friends and visitors). The last page(s) of this document has been signed and retained as a CHART COPY Signatures Patient Education Materials Tendon Laceration Laceration, Hand: All Closures Medication Leaflets My discharge plan and instructions have been reviewed and explained to me and I,FRANK FREEMAN understand my current condition and have read and understand these discharge instructions. I have received a written copy of the plan/instructions. If I have questions, I am aware that I should contact my doctor. 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 MICRO - Microbiology PROCEDURE: Urine Culture [*1] SOURCE: Urine BODY SITE: COLLECTED DATE/TIME: 07/03/2022 19:48 EDT RECEIVED DATE/TIME: 07/04/2022 19:30 EDT START DATE/TIME: 07/04/2022 19:31 EDT FREE TEXT SOURCE: FINAL REPORTS Final Report [] Verified Date/Time/Personnel: 07/06/2022 07:46 EDT <10,000 cfu/ml. No Significant growth. Sensitivity not indicated. PRELIMINARY REPORTS Preliminary Report [] Verified Date/Time/Personnel: 07/05/2022 09:00 EDT No growth to date Performing Locations *1: This test was performed at: [facility], [address] [place] [address], [id number] , [facility] [place]) 07-03-2022 Hospital Discharg e instructions Patient Education 07/03/2022 21:29:40 Urinary Tract Infections in Women Urinary Tract Infections in Women Urinary tract infections (UTIs) are most often caused by bacteria. These bacteria enter the urinary tract. The bacteria may come from outside the body. Or they may travel from the skin outside the rectum or vagina into the urethra. Female anatomy makes it easy for bacteria from the bowel to enter a woman s urinary tract, which is the most common source of UTI. This means women develop UTIs more often than men. Pain in or around the urinary tract is a common UTI symptom. But the only way to know for sure if you have a UTI for the healthcare provider to test your urine. The two tests that may be done are the urinalysis and urine culture. Types of UTIs Cystitis. A bladder infection (cystitis) is the most common UTI in women. You may have urgent or frequent urination. You may also have pain, burning when you urinate, and bloody urine. Urethritis. This is an inflamed urethra, which is the tube that carries urine from the bladder to outside the body. You may have lower stomach or back pain. You may also have urgent or frequent urination. Pyelonephritis. This is a kidney infection. If not treated, it can be serious and damage your kidneys. In severe cases, you may need to stay in the hospital. You may have a fever and lower back pain. Medicines to treat a UTI Most UTIs are treated with antibiotics. These kill the bacteria. The length of time you need to take them depends on the type of infection. It may be as short as 3 days. If you have repeated UTIs, you may need a low-dose antibiotic for several months. Take antibiotics exactly as directed. Don t stop taking them until all of the medicine is gone. If you stop taking the antibiotic too soon, the infection may not go away. You may also develop a resistance to the antibiotic. This can make it much harder to treat. Lifestyle changes to treat and prevent UTIs The lifestyle changes below will help get rid of your UTI. They may also help prevent future UTIs. Drink plenty of fluids. This includes water, juice, or other caffeine-free drinks. Fluids help flush bacteria out of your body. Empty your bladder. Always empty your bladder when you feel the urge to urinate. And always urinate before going to sleep. Urine that stays in your bladder can lead to infection. Try to urinate before and after sex as well. Practice good personal hygiene. Wipe yourself from front to back after using the toilet. This helps keep bacteria from getting into the urethra. Use condoms during sex. These help prevent UTIs caused by sexually transmitted bacteria. Also don't use spermicides during sex. These can increase the risk for UTIs. Choose other forms of control instead. For women who tend to get UTIs after sex, a low-dose of a preventive antibiotic may be used. Be sure to discuss this option with your healthcare provider. Follow up with your healthcare provider as directed. He or she may test to make sure the infection has cleared. If needed, more treatment may be started. [phone] [employer]. [address] [place] [address]. All rights reserved. This information is not intended as a substitute for professional medical care. Always follow your healthcare professional's instructions. Follow Up Care 07/03/2022 19:30:02 With:MINA ALMAGUER MD Address: [address] [place] [phone] When:2-4 days [facility] 07-03-2022 Note Discharge Instructions Thank you for allowing [facility] to assist you with your healthcare needs. The following is important discharge information regarding your hospital visit. Diagnosis from Today's Visit UTI - Urinary tract infection Abdominal pain Arm pain-swelling What to Do Next Instructions from Your Care Team Discharge ED Outpatient Vascular Lab - Ordered -- Test Requested: RUE venous duplex, Upper extremity, Right, Test Reason: Swelling, Mon-Fri 8am-4:30pm: Call [phone] at 7:30am to schedule a same day appointment for testing. Please be aware there may be a short wait time. Post Acute Orders No qualifying data available. You Need to Schedule the Following Appointments Follow Up with MINA ALMAGUER MD When Within 2-4 days Where: [address] [facility] [place] [address] Allergies penicillins Medications Please ask your primary doctor or pharmacist before taking any other medication not listed, including over the counter drugs, herbal medications, vitamins and or supplements as they may interact with your home medications. What How Much When Why Instructions Last Dose New cephalexin (cephalexin 500 mg oral capsule) 1 cap by mouth Every 12 hours UTI - Urinary tract infection Duration: 7 Days Printed Prescription Unchanged albuterol (albuterol MDI (90 mcg/ inh) CFC free inhalation aerosol) 1 puff(s) by inhalation Once as needed for for wheezing Unchanged cetirizine (Zyrtec 5 mg oral tablet (NF)) 1 tab(s) by mouth Every day as needed for for allergy symptoms Unchanged ibuprofen (Motrin 400 mg oral tablet) 1 tab(s) by mouth Every 4 hours as needed for for pain Please take this list to your next doctor s visit. Bring all medications you take, including over the counter medications, herbals and other supplements with you to your doctor s visit. Patients and families are reminded to discard old lists and to update any records with all medication providers or retail pharmacies. Medication Leaflets cephalexin (sef a RAI in) Keloraine What is the most important information I should know about cephalexin? You should not use this medicine if you are allergic to cephalexin or to similar antibiotics, such as Ceftin, Cefzil, Omnicef, and others. Tell your doctor if you are allergic to any drugs, especially penicillins or other antibiotics. What is cephalexin? Cephalexin is a cephalosporin (SEF a low spor in) antibiotic that is used to treat bacterial infections of the lungs, ear, skin, bones, bladder, and kidneys. Cephalexin is used to treat infections in adults and children who are at least 1 year old. Cephalexin may also be used for purposes not listed in this medication guide. What should I discuss with my healthcare provider before taking cephalexin? You should not use this medicine if you are allergic to cephalexin or any other cephalosporin antibiotic (cefdinir, cefadroxil, cefoxitin, cefprozil, ceftriaxone, cefuroxime, Omnicef, and others). Tell your doctor if you have ever had: an allergy to any drug (especially penicillin); liver or kidney disease; or intestinal problems, such as colitis. The liquid form of cephalexin may contain sugar. This may affect you if you have diabetes. Tell your doctor if you are or breast-feeding. How should I take cephalexin? Follow all directions on your prescription label and read all medication guides or instruction sheets. Use the medicine exactly as directed. Do not use cephalexin to treat any condition that has not been checked by your doctor. Measure liquid medicine carefully. Use the dosing syringe provided, or use a medicine dose-measuring device (not a kitchen spoon). Use this medicine for the full prescribed length of time, even if your symptoms quickly improve. Skipping doses can increase your risk of infection that is resistant to medication. Cephalexin will not treat a viral infection such as the flu or a common cold. Do not share cephalexin with another person, even if they have the same symptoms you have. This medicine can affect the results of certain medical tests. Tell any doctor who treats you that you are using cephalexin. Store the tablets and capsules at room temperature away from moisture, heat, and light. Store the liquid medicine in the refrigerator. Throw away any unused liquid after 14 days. What happens if I miss a dose? Take the medicine as soon as you can, but skip the missed dose if it is almost time for your next dose. Do not take two doses at one time. What happens if I overdose? Seek emergency medical attention or call the Poison Help line at . Overdose symptoms may include nausea, vomiting, stomach pain, diarrhea, and blood in your urine. What should I avoid while taking cephalexin? Antibiotic medicines can cause diarrhea, which may be a sign of a new infection. If you have diarrhea that is watery or bloody, call your doctor before using anti-diarrhea medicine. What are the possible side effects of cephalexin? Get emergency medical help if you have signs of an allergic reaction (hives, difficult breathing, swelling in your face or throat) or a severe skin reaction (fever, sore throat, burning eyes, skin pain, red or purple skin rash with blistering and peeling). Call your doctor at once if you have: severe stomach pain, diarrhea that is watery or bloody (even if it occurs months after your last dose); unusual tiredness, feeling light-headed or short of breath; easy bruising, unusual bleeding, purple or red spots under your skin; a seizure; pale skin, cold hands and feet; yellowed skin, dark colored urine; fever, weakness; or pain in your side or lower back, painful urination. Common side effects may include: diarrhea; nausea, vomiting; indigestion, stomach pain; or vaginal itching or discharge. This is not a complete list of side effects and others may occur. Call your doctor for medical advice about side effects. You may report side effects to FDA at 1-677-BMO-8482. What other drugs will affect cephalexin? Tell your doctor about all your other medicines, especially: metformin; or probenecid. This list is not complete. Other drugs may affect cephalexin, including prescription and [id number] medicines, vitamins, and herbal products. Not all possible drug interactions are listed here. Where can I get more information? Your pharmacist can provide more information about cephalexin. Remember, keep this and all other medicines out of the reach of children, never share your medicines with others, and use this medication only for the indication prescribed. Every effort has been made to ensure that the information provided by [employer]') is accurate, up-to-date, and complete, but no guarantee is made to that effect. Drug information contained herein may be time sensitive. [employer] information has been compiled for use by healthcare practitioners and consumers in the [place] and therefore [employer] does not warrant that uses outside of the [place] are appropriate, unless specifically indicated otherwise. [employer]'s drug information does not endorse drugs, diagnose patients or recommend therapy. Sinbad: [employer] drug information is an informational resource designed to assist licensed healthcare practitioners in caring for their patients and/or to serve consumers viewing this service as a supplement to, and not a substitute for, the expertise, skill, knowledge and judgment of healthcare practitioners. The absence of a warning for a given drug or drug combination in no way should be construed to indicate that the drug or drug combination is safe, effective or appropriate for any given patient. [employer] does not assume any responsibility for any aspect of healthcare administered with the aid of information [facility] provides.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
[2024-01-03 10:33] LABS: Absolute Lymphocyte Count 1.55 X10^3/uL (0.83-4.51); Absolute Neutrophil Count 1.9 X10^3/uL (2.0-7.7); Basophil# 0.04 X10^3/uL; Basophil% 0.9 % (0-1); Eosinophil# 0.34 X10^3/uL; Eosinophils% 7.8 % (0-5); Hematocrit 36.6 % (37-47); Hemoglobin 11.5 g/dL (12.0-15.0); Lymphocyte # 1.55 X10^3/ul (0.83-4.51); Lymphocyte % 35.5 % (19-41); Mean Corp Hgb Conc 31.4 g/dL (32-36); Mean Corpuscular Hgb 28.2 pg (27.0-32.0); Mean Corpuscular Volume 89.7 fL (81-99); Mean Platelet Vol. 9.4 fl (6.2-12.0); Monocyte# 0.55 X10^3/uL; Monocyte% 12.6 % (0-10); NRBC Flagged by Analyzer 0 % (0-5); Neutrophil # 1.89 X10^3/uL (2.7-7.7); Neutrophil % 43.2 % (47-70); Platelet Count 272 K/mm3 (150-450); RBC Distribution Width CV 12.7 % (11.6-14.6); RBC Distribution Width SD 41.9 fl (35.1-43.9); Red Blood Count 4.08 M/mm3 (4.2-5.4); White Blood Count 4.4 K/mm3 (4.4-11.0)
[2024-01-03 11:21] LABS: International Normalized Ratio 1.1; Prothrombin Time (Protime)PT. 14.2 SECONDS (11.7-14.9)
[2024-01-03 11:23] LABS: ALB/GLOB Ratio 1.1 RATIO (0.9-2.4); AST(SGOT) 19 U/L (15-37); Alanine Aminotransfer ALT/SGPT 13 U/L (13-56); Albumin, Serum 3.7 g/dL (3.2-5.0); Alkaline Phosphatase 60 U/L (45-117); Anion Gap 6 (5-15); BUN 7 mg/dL (7-18); Calcium,Total 8.8 mg/dL (8.5-10.1); Chloride 107 mmol/L (98-107); EST Glomerular Filtration Rate 112 mL/min (>60); Est Glom Filt Rate - Afr Amer 135 mL/min (>60); Globulin 3.3 g/dL (2.2-4.2); Glucose 86 mg/dL (74-106); Potassium 3.9 mmol/L (3.5-5.1); Sodium Level 139 mmol/L (136-145)
[2024-01-03 11:46] LABS: HIV - WCH Non-Reactive (Nonreactive); Hepatitis B Surface Antibody Reactive; Hepatitis B Surface Antigen Non-Reactive (Nonreactive)
[2024-01-06 01:07] LABS: HCV Quant. RNA PCR HCV Not Detected IU/mL (.); Hepatitis A AB, Total Positive (Negative)
== END | disposition home or self-care (01) ==
PROVIDERS: Referring Provider Family Medicine; Visit Provider Family Medicine
DX: B18.2 Chronic viral hepatitis C (principal)
CPT/HCPCS: 87902; 36415; 80053; 85025; 85610; 86703; 86706; 86708; 87340; 87522

== ENCOUNTER 2024-03-07 19:10 | Emergency (ER) | payer MEDICAID, SELFPAY ==
[2024-03-07 19:11] VITALS: BP 113/82; PULSE 106; RESP 18; TEMP 36.7; O2SAT 98; BMI 26.9
--- NOTE | 2024-03-07 19:47 | EX.ED.VIS.PS ---
HPI HPI - Psych History of Present Illness Chief Complaint: Suicidal Informant: patient Narrative Narrative: Presents from [facility] for psychiatric evaluation. Patient is going through [facility] for history of meth and heroin addiction. She has been there for 2 and half months. She has been clean for 7 months. History anxiety, depression, bipolar. This evening she got caught with the phone that was against the rules. She made a comment that she would cut her wrist with suicidal ideations. She was sent to the counselor with discussion of this, and she was sent here for psychiatric evaluation. She denies any current suicidal homicidal ideations. History of self cutting in the past. Denies fevers. Denies cough. Denies vomiting diarrhea. Started her menstrual period today. Prior similar symptoms: Yes PFSH PFSH Medical History Anxiety Asthma Bipolar disorder Depression Depression with anxiety PTSD (post-traumatic stress disorder) Smoker Substance abuse Home Medications phenazopyridine 200 mg tablet (Pyridium) 200 mg PO TID #10 tabs 05/11/22 [Rx Last Taken Unknown] sulfamethoxazole 800 mg-trimethoprim 160 mg tablet (Bactrim DS) 1 tab PO BID #14 tabs 05/11/22 [Rx Last Taken Unknown] Allergy/AdvReac Type Severity Reaction Status Date / Time Penicillins [PCN] Allergy Anaphylaxis Verified 03/07/24 19:14 Family History Sister Diabetes mellitus type 1 Grandfather Heart disease Social History Smoking Status: Former smoker alcohol intake: never substance use type: does not use caffeine: Yes what type of physical activity do you participate in: none seatbelt use: sometimes ROS ROS ED Constitutional Constitutional ED: Denies chills, fever(s) or sweats Eyes Eyes: Denies change in vision ENT ENT ED: Denies dysphagia or sore throat Cardiovascular Cardiovascular: Denies chest pain, leg edema, palpitations or racing heartbeat Respiratory/Chest Respiratory/Chest: Denies cough, dyspnea or dyspnea on exertion Gastrointestinal Gastrointestinal: Denies abdominal pain, diarrhea, nausea or vomiting Genitourinary Genitourinary ED: Denies dysuria, hematuria or urinary frequency Musculoskeletal Musculoskeletal: Denies back pain, extremity pain or neck pain Integumentary Denies rash or wounds Neurologic Neurologic: Denies headache(s), paresthesias or weakness Psychiatric Psychiatric: Reports suicidal ideation EXAM Physical Exam Const Vital Signs: 03/07/24 19:11 03/07/24 23:42 Temperature 98.0 F 98 F Temperature Source Temporal Pulse Rate 106 H 84 Respiratory Rate 18 16 Blood Pressure 113/82 H 129/77 H Blood Pressure Mean 92 94 Pulse Ox 98 99 Oxygen Delivery Method Room Air Positive well nourished and well developed General Appearance ED: well developed and NAD HEENT Reports moist mucous membranes normocephalic and atraumatic Eyes EOMs intact bilaterally and conjunctivae normal General Eye ED: Yes normal appearance of both eyes Neck no lymphadenopathy and supple General: Negative for tenderness Chest Wall Chest: Negative for tenderness Resp normal respiratory effort and normal air movement Effort and Inspection: symmetric chest movement; Negative for respiratory distress Cardio regular rate, regular rhythm and no murmurs Peripheral Pulses: pulses 2+ throughout GI normal to inspection, nondistended, normoactive bowel sounds and non-tender Palpation: Negative for guarding or rebound tenderness present Back/Spine no CVA tenderness and no thoracic nor lumbar tenderness Extremity normal to inspection General Extremety ED: Negative for edema or tenderness General Extremity: Negative for edema Neuro oriented x3 and no sensory deficits noted Sensorium / Orientation: awake and alert Psych Psych Narrative: Currently cooperative, denying any current suicidal homicidal ideations. Skin no rashes or lesions noted and no wounds Skin Narrative: Healed scars bilateral forearms. MDM MDM MDM Narrative Medical decision making narrative: Interventions / MDM: Differential diagnosis: Suicidal ideation, history of anxiety, depression, bipolar Diagnosis considered but do not suspect: N/A My EKG interpretation: N/A Imaging independently reviewed and interpreted by myself: N/A External documents reviewed: N/A Test considered but not ordered:N/A ED course: Patient currently cooperative. She was sent here from counselor at [facility] for evaluation. Medical clearance labs will be obtained. 2048: Labs all returned normal toxicology and alcohol are negative. Medically cleared. Will have crisis evaluate the patient. Patient evaluated by crisis, a safety plan her. They contacted [facility]. [facility] came to pick the patient up before discharge papers were printed. Re-evaluation: stable Disposition discussed with patient/family/significant other: Patient Case discussed with consulting clinician: Crisis This note was generated with Dragon dictation software. It may contain incorrect words, spelling, and punctuation that were not noted in checking the note before signing. Lab Data Attestation: I reviewed the patient's lab results. Labs: Laboratory Results - last 24 hr 03/07/24 03/07/24 19:53 19:59 WBC 5.3 RBC 4.32 Hgb 12.4 Hct 38.8 MCV 89.8 MCH 28.7 MCHC 32.0 RDW Std Deviation 42.0 RDW Coeff of Carolyn 12.9 Plt Count 276 MPV 9.8 Immature Gran % (Auto) 0.200 Neut % (Auto) 54.6 Lymph % (Auto) 31.6 Daniels % (Auto) 9.9 Eos % (Auto) 2.9 Baso % (Auto) 0.8 Absolute Neuts (auto) 2.9 Absolute Lymphs (auto) 1.66 Nucleated RBC % 0 Sodium 137 Potassium 3.9 Chloride 107 Carbon Dioxide 27.0 Anion Gap 3 L BUN 12 Creatinine 0.71 Estim Creat Clear Calc 130.44 Est GFR (MDRD) Af Amer 133 Est GFR (MDRD) Non-Af 110 BUN/Creatinine Ratio 16.9 Glucose 93 Calcium 9.3 Serum , Qual NEGATIVE Urine Opiates Screen NEGATIVE Urine Methadone Screen NEGATIVE Ur Barbiturates Screen NEGATIVE Ur Phencyclidine Scrn NEGATIVE Ur Amphetamines Screen NEGATIVE MDMA (Ecstasy) Screen NEGATIVE U Benzodiazepines Scrn NEGATIVE Urine Cocaine Screen NEGATIVE U Cannabinoids Screen NEGATIVE Ur Drug Screen Comment Ethyl Alcohol < 3.0 Discharge Plan Triage Chief Complaint: Suicidal ED Provider: Andrew Ortiz Dx/Rx/DC Orders Clinical Impression: Depression with anxiety, Depression with suicidal ideation Prescriptions: No Action sulfamethoxazole-trimethoprim [Bactrim DS] 800-160 mg tablet 1 tab PO BID Qty: 14 0RF phenazopyridine [Pyridium] 200 mg tablet 200 mg PO TID Qty: 10 0RF Primary Care Provider: Care Physician,No Primary Referrals: Care Physician,No Primary [Primary Care Provider] - Disposition Disposition: Home, Self Care Discharge Date/Time: 03/07/24 23:42
[2024-03-07 20:23] LABS: Absolute Lymphocyte Count 1.66 X10^3/uL (0.83-4.51); Absolute Neutrophil Count 2.9 X10^3/uL (2.0-7.7); Basophil# 0.04 X10^3/uL; Basophil% 0.8 % (0-1); Eosinophil# 0.15 X10^3/uL; Eosinophils% 2.9 % (0-5); Hematocrit 38.8 % (37-47); Hemoglobin 12.4 g/dL (12.0-15.0); Lymphocyte # 1.66 X10^3/ul (0.83-4.51); Lymphocyte % 31.6 % (19-41); Mean Corpuscular Hgb 28.7 pg (27.0-32.0); Mean Corpuscular Volume 89.8 fL (81-99); Mean Platelet Vol. 9.8 fl (6.2-12.0); Monocyte# 0.52 X10^3/uL; Monocyte% 9.9 % (0-10); NRBC Flagged by Analyzer 0 % (0-5); Neutrophil # 2.87 X10^3/uL (2.7-7.7); Neutrophil % 54.6 % (47-70); Platelet Count 276 K/mm3 (150-450); RBC Distribution Width CV 12.9 % (11.6-14.6); Red Blood Count 4.32 M/mm3 (4.2-5.4); White Blood Count 5.3 K/mm3 (4.4-11.0)
[2024-03-07 20:31] LABS: Amphetamine Urine VISTA NEGATIVE (<1000 ng/mL); Barbiturate Urine VISTA NEGATIVE (< 200 ng/mL); Benzodiazepine Urine VISTA NEGATIVE (< 200 ng/mL); Cocaine Urine VISTA NEGATIVE (< 300 ng/mL); Ecstacy Urine VISTA NEGATIVE (< 500 ng/mL); Methadone Urine VISTA NEGATIVE (< 300 ng/mL); PCP Urine VISTA NEGATIVE (< 25 ng/mL); THC Urine VISTA NEGATIVE (< 50 ng/mL); Vista UDS pH Range 6
[2024-03-07 20:39] LABS: Internal QC Validated? YES +Cl - CLEAR BKGD; Pregnancy, Serum, hCG Quali. NEGATIVE Negative
[2024-03-07 20:43] LABS: Alcohol, Blood (Medical)-Serum < 3.0 mg/dL; Anion Gap 3 (5-15); BUN 12 mg/dL (7-18); BUN/Creat Ratio 16.9 RATIO (10-20); Calcium,Total 9.3 mg/dL (8.5-10.1); Chloride 107 mmol/L (98-107); Creatinine, Serum 0.71 mg/dL (0.55-1.02); EST Glomerular Filtration Rate 110 mL/min (>60); Est Glom Filt Rate - Afr Amer 133 mL/min (>60); Estimated Creatinine Clearance 130.44 ml/min; Glucose 93 mg/dL (74-106); Potassium 3.9 mmol/L (3.5-5.1); Sodium Level 137 mmol/L (136-145)
[2024-03-07 23:42] VITALS: BP 129/77; PULSE 84; RESP 16; TEMP 36.6; O2SAT 99
== END 2024-03-07 23:42 | disposition home or self-care (01) ==
LOC: ED 19:30
PROVIDERS: Emergency Provider Emergency Medicine; Visit Provider Emergency Medicine
DX: R45.851 Suicidal ideations (principal); F41.8 Other specified anxiety disorders; Z87.891 Personal history of nicotine dependence; J45.909 Unspecified asthma, uncomplicated; Z91.51 Personal history of suicidal behavior
CPT/HCPCS: 80048; 80307; 80320; 84703; 85025; 87635; 99285; G0480

== ENCOUNTER → 2024-07-08 | Outpatient (CLI) | payer MEDICAID, SELFPAY ==
--- NOTE | 2024-07-08 16:26 | US_ITS ---
STUDY: FIRST TRIMESTER OBSTETRICAL ULTRASOUND REASON FOR EXAM: Female, 24 years old DATING LMP: Unknown. TECHNIQUE: Transabdominal and Transvaginal TECHNICAL QUALITY: Adequate. PRIOR ULTRASOUND: None. FINDINGS: There is visualization of a single gestational sac in a normal intrauterine position. The mean sac diameter (MSD) measures 4.43 cm, indicating an estimated gestational age (EGA) of 9 weeks, days. The gestational sac shape is within normal limits. There is a visualized yolk sac. The yolk sac measures 4. The placenta is non-visualized. There is visualization of a live embryo. The crown-rump length (CRL) measures 3.13 cm, indicating an estimated gestational age (EGA) of 9 weeks, 5 days. There is demonstrated cardiac activity with a heart rate of 180 bpm. The estimated gestation age (EGA) by US is 10 weeks, 1 days. The estimated date of delivery (ETTA) by US is February 02, 2025. The uterus measures 8.6 x 11.28 x 6.28 cm. A small to moderate-sized subchorionic hemorrhage is present in the lower uterine segment at the endocervical junction measuring 2.06 cm in diameter. There is no demonstrated uterine fibroid. The cervix is closed. The right ovary measures 2.3 x 1.6 x 1.4 cm. There is no right ovarian cyst. There is no visualized right adnexal mass or complex lesion. The left ovary measures 3.4 x 2.6 x 2.1 cm. There is no left ovarian cyst. There is no visualized left adnexal mass or complex lesion. There is minimal fluid in the cul de sac. US/Init OB < 14Wks US IMPRESSION: 1. Single live IUP at 10 weeks and 1 day by ultrasound criteria. 2. A small to moderate-sized subchorionic hemorrhage is present in the lower uterine segment at the endocervical junction measuring 2.06 cm in diameter. Electronically Signed: Gagan Hernandez MD at 12:59 EDT ,
== END | disposition home or self-care (01) ==
PROVIDERS: Referring Provider Advanced Practice Midwife; Visit Provider Advanced Practice Midwife
DX: Z34.90 Encounter for supervision of normal pregnancy, unspecified, unspecified trimester (principal); Z3A.01 Less than 8 weeks gestation of pregnancy
CPT/HCPCS: 76801

== ENCOUNTER 2024-11-27 14:40 | Outpatient (CLI) | payer MEDICAID, SELFPAY ==
[2024-11-27 15:05] VITALS: BP 109/66; PULSE 88; RESP 17; TEMP 36.5
[2024-11-27 16:13] VITALS: BMI 29.5
[2024-11-27 17:02] LABS: Color, Urine Yellow (Yellow); Glucose, Dipstick Normal (Normal); Ketone-Dipstick Negative (Negative); Leukocyte Esterase-Dipstick 25 /ul (Negative); Nitrite-Dipstick Negative (Negative); Occult Blood-Urine Negative /ul (Negative); Protein-Dipstick 15 mg/dl (Negative); Urine Bilirubin Dipstick Negative (Negative); Urine Clarity Sl. Cloudy (Clear); Urine Urobilinogen Normal (Normal)
--- NOTE | 2024-11-27 18:53 | OB.TRI.NOTE ---
HPI - General General Date of Service: 11/27/24 HPI Narrative FRANK FREEMAN, is a 24 F 30.3 weeks who presents c/o abdominal discomfort, no bleeding or LOF. PFSH PFSH Medical History Anxiety Asthma Bipolar disorder Depression Depression with anxiety PTSD (post-traumatic stress disorder) Smoker Substance abuse Home Medications ?Medication ?Instructions ?Recorded ?Last Taken ?Type phenazopyridine 200 mg tablet 200 mg PO TID #10 tabs 05/11/22 Unknown Rx (Pyridium) sulfamethoxazole 800 1 tab PO BID #14 tabs 05/11/22 Unknown Rx mg-trimethoprim 160 mg tablet (Bactrim DS) albuterol sulfate 90 mcg/actuation inhalation 11/27/24 Unknown History aerosol inhaler (Ventolin HFA) ferrous sulfate 325 mg (65 mg 325 mg PO DAILY 11/27/24 11/26/24 History iron) tablet,delayed release vit no.95-ferrous 1 tab PO DAILY 11/27/24 11/26/24 History fumarate 28 mg-folic acid 800 mcg tablet () Allergy/AdvReac Type Severity Reaction Status Date / Time Penicillins (PCN) Allergy Anaphylaxis Verified 11/27/24 15:12 Family History Sister Diabetes mellitus type 1 Grandfather Heart disease Social History Smoking Status: Former smoker alcohol intake: never substance use type: does not use caffeine: Yes what type of physical activity do you participate in: none seatbelt use: sometimes Physical Exam Narrative Per nursing: closed/thick NST FHR Rate Baby A Baseline: 150 Variability:: Moderate Accelerations:: 15 x 15 Decelerations:: None NST Reactive:: Yes FHR Category:: Category I Uterine Activity:: no ctx Assessment & Plan (1) Abdominal pain affecting : PLAN: Plan 24yo @ 30 weeks with abdominal pain 1) NST reactive -cat 1- not in labor 2) UA- will send culture 3) follow up in office- [facility] home
== END 2024-11-27 18:15 | disposition home or self-care (01) ==
LOC: WPOUT 14:42 → WP 14:43
PROVIDERS: Referring Provider Obstetrics & Gynecology; Visit Provider Obstetrics & Gynecology
DX: O99.891 Other specified diseases and conditions complicating pregnancy (principal); O99.513 Diseases of the respiratory system complicating pregnancy, third trimester; J45.909 Unspecified asthma, uncomplicated; Z3A.30 30 weeks gestation of pregnancy; Z79.51 Long term (current) use of inhaled steroids; Z87.891 Personal history of nicotine dependence; R10.9 Unspecified abdominal pain
CPT/HCPCS: 59025; 59050; 81002; 87086; 87088; 99221; G0378

== ENCOUNTER 2025-01-12 14:20 | Outpatient (CLI) | payer MEDICAID, SELFPAY ==
[2025-01-12 14:30] VITALS: BP 115/62; PULSE 88; RESP 14; O2SAT 98
[2025-01-12 14:34] VITALS: TEMP 36.6
[2025-01-12 15:22] VITALS: BMI 31.1
--- NOTE | 2025-01-12 19:07 | OB.TRI.NOTE ---
HPI - General General Date of Admission: 01/12/25 Date of Service: 01/12/25 HPI Narrative FRANK FREEMAN, is a 24 F who presents c/o abdominal pain. No VB/LOF. Maternal Data Information Final ETTA: 02/02/25 Gestational age: 37 0/7 PFSH PFS Medical History Anxiety Asthma Bipolar disorder Depression Depression with anxiety PTSD (post-traumatic stress disorder) Smoker Substance abuse Home Medications ?Medication ?Instructions ?Recorded ?Last Taken ?Type phenazopyridine 200 mg tablet 200 mg PO TID #10 tabs 05/11/22 Unknown Rx (Pyridium) sulfamethoxazole 800 1 tab PO BID #14 tabs 05/11/22 Unknown Rx mg-trimethoprim 160 mg tablet (Bactrim DS) albuterol sulfate 90 mcg/actuation inhalation 11/27/24 Unknown History aerosol inhaler (Ventolin HFA) ferrous sulfate 325 mg (65 mg 325 mg PO DAILY 11/27/24 11/26/24 History iron) tablet,delayed release vit no.95-ferrous 1 tab PO DAILY 11/27/24 11/26/24 History fumarate 28 mg-folic acid 800 mcg tablet () Allergy/AdvReac Type Severity Reaction Status Date / Time Penicillins (PCN) Allergy Anaphylaxis Verified 01/12/25 15:20 Family History Sister Diabetes mellitus type 1 Grandfather Heart disease Social History Smoking Status: Former smoker alcohol intake: never substance use type: does not use caffeine: Yes what type of physical activity do you participate in: none seatbelt use: sometimes NST FHR Rate Baby A Baseline: 155 Variability:: Moderate Accelerations:: 15 x 15 Decelerations:: Variable NST Reactive:: Yes Uterine Activity:: no regular ctxs Assessment & Plan (1) 37 weeks gestation of : PLAN: no evidence of PTL. NST reviewed, variable decel likely. Will have in to office for NST tomorrow. (2) Abdominal pain affecting :
== END 2025-01-12 15:30 | disposition home or self-care (01) ==
LOC: WPOUT 14:30 → WP 14:31
PROVIDERS: Referring Provider Obstetrics & Gynecology; Visit Provider Obstetrics & Gynecology
DX: O99.891 Other specified diseases and conditions complicating pregnancy (principal); J45.909 Unspecified asthma, uncomplicated; Z87.891 Personal history of nicotine dependence; R10.9 Unspecified abdominal pain; Z3A.37 37 weeks gestation of pregnancy; O99.513 Diseases of the respiratory system complicating pregnancy, third trimester
CPT/HCPCS: 59025; 59050; 99221; G0378

== ENCOUNTER 2025-02-04 13:55 | Outpatient (CLI) | payer MEDICAID, SELFPAY ==
[2025-02-04 14:18] VITALS: BP 111/72; PULSE 97
[2025-02-04 14:26] VITALS: BMI 33.2
--- NOTE | 2025-02-04 20:42 | OB.TRI.NOTE ---
HPI - General General Date of Service: 02/04/25 HPI Narrative FRANK FREEMAN, is a 24 F @ 40 weeks who presents c/o contractions PFSH PFSH Medical History Anxiety Asthma Bipolar disorder Depression Depression with anxiety PTSD (post-traumatic stress disorder) Smoker Substance abuse Home Medications ?Medication ?Instructions ?Recorded ?Last Taken ?Type ferrous sulfate 325 mg (65 mg 325 mg PO DAILY 11/27/24 11/26/24 History iron) tablet,delayed release vit no.95-ferrous 1 tab PO DAILY 11/27/24 11/26/24 History fumarate 28 mg-folic acid 800 mcg tablet () diphenhydramine HCl 25 mg capsule 25 mg PO QHS 02/04/25 Unknown History (Banophen) Allergy/AdvReac Type Severity Reaction Status Date / Time Penicillins (PCN) Allergy Anaphylaxis Verified 02/04/25 14:04 Family History Sister Diabetes mellitus type 1 Grandfather Heart disease Social History Smoking Status: Former smoker alcohol intake: never substance use type: does not use caffeine: Yes what type of physical activity do you participate in: none seatbelt use: sometimes Physical Exam Narrative VE: 11/28/-3 per RN NST FHR Rate Baby A Baseline: 130 Variability:: Moderate Accelerations:: 15 x 15 Decelerations:: None NST Reactive:: Yes FHR Category:: Category I Uterine Activity:: q3-7 min Assessment & Plan (1) False labor after 37 completed weeks of gestation: (2) 40 weeks gestation of : PLAN: Plan 24yo @ 40 weeks c/o contractions- false labor NST reactive dc home follow up as scheduled in office plan for IOL 41 weeks unless Spontaneous labor prior
== END 2025-02-04 15:15 | disposition home or self-care (01) ==
LOC: WPOUT 13:59 → WP 13:59
PROVIDERS: Referring Provider Obstetrics & Gynecology; Visit Provider Obstetrics & Gynecology
DX: O47.1 False labor at or after 37 completed weeks of gestation (principal); J45.909 Unspecified asthma, uncomplicated; Z3A.40 40 weeks gestation of pregnancy; Z87.891 Personal history of nicotine dependence; O99.513 Diseases of the respiratory system complicating pregnancy, third trimester
CPT/HCPCS: 59025; 59050; 99221; G0378

== ENCOUNTER 2025-02-07 19:17 | Inpatient (IN) | payer MEDICAID, SELFPAY ==
[2025-02-07 19:15] VITALS: BMI 33.5
[2025-02-07 19:33] VITALS: BP 113/74; PULSE 100; PULSE 105; RESP 16; TEMP 36.3; O2SAT 98
[2025-02-07] MEDS: 0.9% Saline Lock 10 ML Syringe IV ×3 (20:25→21:06)
[2025-02-07 20:47] LABS: Absolute Neutrophil Count 9.2 X10^3/uL (2.0-7.7); Basophil# 0.03 X10^3/uL; Basophil% 0.3 % (0-1); Eosinophil# 0.17 X10^3/uL; Eosinophils% 1.4 % (0-5); Hematocrit 33.5 % (37-47); Hemoglobin 11.2 g/dL (12.0-15.0); Lymphocyte % 12.8 % (19-41); Mean Corp Hgb Conc 33.4 g/dL (32-36); Mean Corpuscular Hgb 30.3 pg (27.0-32.0); Mean Corpuscular Volume 90.5 fL (81-99); Mean Platelet Vol. 9.9 fl (6.2-12.0); Monocyte% 6.8 % (0-10); NRBC Flagged by Analyzer 0 % (0-5); Neutrophil # 9.21 X10^3/uL (2.7-7.7); Neutrophil % 78.3 % (47-70); Platelet Count 267 K/mm3 (150-450); RBC Distribution Width CV 14.1 % (11.6-14.6); RBC Distribution Width SD 46.2 fl (35.1-43.9); White Blood Count 11.8 K/mm3 (4.4-11.0)
[2025-02-07 21:17] LABS: Syphilis Antibodies Nonreactive (Nonreactive)
[2025-02-07 21:44] VITALS: BP 125/69; PULSE 93; RESP 17; TEMP 36.4; O2SAT 98
[2025-02-07 22:42] LABS: Amphetamine Urine NEGATIVE (<1000 ng/mL); Barbiturate Urine NEGATIVE (< 200 ng/mL); Benzodiazepine Urine NEGATIVE (< 200 ng/mL); Buprenorphine Urine NEGATIVE (< 200 ng/mL); Cocaine Urine NEGATIVE (< 300 ng/mL); Fentanyl, Urine NEGATIVE; Methadone Urine NEGATIVE (< 300 ng/mL); Opiates Urine NEGATIVE (< 300 ng/mL); Oxycodone, Urine NEGATIVE (< 100 ng/mL); PCP Urine NEGATIVE (< 25 ng/mL); THC Urine NEGATIVE (< 50 ng/mL)
--- NOTE | 2025-02-07 22:52 | PCM.HP.OB ---
HPI - General General Date of Admission: 02/07/25 Date of Service: 02/07/25 Chief Complaint: Induction of labor HPI Narrative FRANK FREEMAN, is a 24 F who presents induction of labor for post dates Maternal Data Information Final ETTA: 02/02/25 Gestational age: 40+5 PFSH PFSH Medical History Bipolar disorder Anxiety Depression Smoker Substance abuse PTSD (post-traumatic stress disorder) Asthma Depression with anxiety Home Medications ?Medication ?Instructions ?Recorded ?Last Taken ?Type ferrous sulfate 325 mg (65 mg 325 mg PO DAILY anemia 11/27/24 02/02/25 History iron) tablet,delayed release vit no.95-ferrous 1 tab PO DAILY 11/27/24 02/07/25 History fumarate 28 mg-folic acid 800 mcg tablet () diphenhydramine HCl 25 mg capsule 25 mg PO QHS sleep aid 02/04/25 02/05/25 History (Banophen) Allergy/AdvReac Type Severity Reaction Status Date / Time Penicillins (PCN) Allergy Anaphylaxis Verified 02/07/25 19:38 Family History Sister Diabetes mellitus type 1 Grandfather Heart disease Social History Smoking Status: Former smoker alcohol intake: never substance use type: does not use caffeine: Yes what type of physical activity do you participate in: none seatbelt use: sometimes History 1 Elective abortions Hx Para 0 Spontaneous abortions Hx # Term Pregnancies Ectopic pregnancies Hx # Pregnancies Multiple births # of living children NST FHR Rate Baby A Baseline: 150 Variability:: Moderate Accelerations:: 15 x 15 Decelerations:: None FHR Category:: Category I ROS Constitutional Constitutional: Denies fatigue, fever(s) or malaise Eyes Eyes: Denies change in vision ENT HEENT: Denies dizziness or headache(s) Cardiovascular Cardiovascular: Denies chest pain, dyspnea or lightheadedness Respiratory/Chest Respiratory/Chest: Denies cough or dyspnea Gastrointestinal Gastrointestinal: Denies change in bowel habits Genitourinary Genitourinary: Denies burning urination or genital lesions Integumentary Integumentary: Denies rash Neurologic Neurologic: Denies confusion, dizziness, headache(s), numbness or weakness Vital Signs Vital Signs Vital Signs: 02/07/25 19:33 02/07/25 19:33 02/07/25 19:33 Temperature Temperature Source Pulse Rate 100 105 H Respiratory Rate Blood Pressure 113/74 BP Systolic 113 BP Diastolic 74 Pulse Ox 02/07/25 19:33 02/07/25 19:33 02/07/25 19:33 Temperature Temperature Source Temporal Pulse Rate Respiratory Rate 16 Blood Pressure BP Systolic BP Diastolic Pulse Ox 98 02/07/25 19:33 02/07/25 19:33 02/07/25 19:33 Temperature 97.4 F L Temperature Source Temporal Pulse Rate Respiratory Rate 16 Blood Pressure BP Systolic BP Diastolic Pulse Ox 02/07/25 19:33 02/07/25 21:44 02/07/25 21:44 Temperature 97.4 F L Temperature Source Pulse Rate 93 Respiratory Rate Blood Pressure 125/69 H BP Systolic 125 BP Diastolic 69 Pulse Ox 02/07/25 21:44 Temperature Temperature Source Pulse Rate Respiratory Rate Blood Pressure BP Systolic BP Diastolic Pulse Ox 98 Weight Weight: 94.347 kg Body Mass Index (BMI) 33.5 Physical Exam Const alert and no apparent distress General Appearance: cooperative HEENT normocephalic Resp normal respiratory effort Cardio regular rate GI soft to palpation GI Narrative: gravid, nontender, appropriate for gestational age Extremity no calf tenderness General Extremity: edema Skin no wounds Rashes: No rashes noted Psych activity/motor behavior normal Labs Labs Labs: Blood Type O POSITIVE Antibody Screen NEGATIVE Hct 33.5 % (37-47) L Hgb 11.2 g/dL (12.0-15.0) L Obstetrics Ultrasound Syphilis Total Ab Nonreactive (Nonreactive) Hep Bs Antigen Non-Reactive (Nonreactive) HIV 1&2 Antibody Non-Reactive (Nonreactive) Miscellaneous Test Assessment & Plan (1) 40 weeks gestation of : (2) Encounter for induction of labor: (3) Hepatitis C antibody positive: PLAN: Plan Kitchen/pit induction of labor
--- NOTE | 2025-02-07 22:58 | PN.OBGYN_ITS ---
Subjective Subjective Kitchen bulb placed without difficulty. 1cm. Objective Data Objective Data Vital Signs: Vital Signs Temp Pulse Resp BP Pulse Ox 97.4 F L 93 16 125/69 H 98 02/07/25 19:33 02/07/25 21:44 02/07/25 19:33 02/07/25 21:44 02/07/25 21:44 Weight: 94.347 kg Body Mass Index (BMI) 33.5 Lab / Micro Data 02/07/25 20:25 Labs: Laboratory Results - last 24 hr 02/07/25 20:25: WBC 11.8 H, RBC 3.70 L, Hgb 11.2 L, Hct 33.5 L, MCV 90.5, MCH 30.3, MCHC 33.4, RDW Std Deviation 46.2 H, RDW Coeff of Carolyn 14.1, Plt Count 267, MPV 9.9, Immature Gran % (Auto) 0.400, Neut % (Auto) 78.3 H, Lymph % (Auto) 12.8 L, [place] % (Auto) 6.8, Eos % (Auto) 1.4, Baso % (Auto) 0.3, Absolute Neuts (auto) 9.2 H, Absolute Lymphs (auto) 1.50, Nucleated RBC % 0, Syphilis Total Ab Nonreactive, Blood Type O POSITIVE, Antibody Screen NEGATIVE 02/07/25 21:00: Urine Opiates Screen NEGATIVE, U Buprenorphine Qual NEGATIVE, Ur Oxycodone Screen NEGATIVE, Urine Methadone Screen NEGATIVE, Urine Fentanyl Screen NEGATIVE, Ur Barbiturates Screen NEGATIVE, Ur Phencyclidine Scrn NEGATIVE, Ur Amphetamines Screen NEGATIVE, U Benzodiazepines Scrn NEGATIVE, Urine Cocaine Screen NEGATIVE, U Cannabinoids Screen NEGATIVE Assessment & Plan (1) Encounter for induction of labor: (2) 40 weeks gestation of : (3) Hepatitis C antibody positive: PLAN: Plan Pitocin /arom planned Desires epidural
[2025-02-08] VITALS (77 sets, daily range): BP systolic 90–126; BP diastolic 49–87; PULSE 68–115; RESP 15–20; TEMP 36.2–37.2; O2SAT 97–100
[2025-02-08] MEDS: Lactated Ringers 1,000 ML 50 ML IV (03:38)
[2025-02-08] MEDS: Oxytocin 15 Units/NS 250ml 15 UNITS/250 ML IV.SOLN 2 UNITS IV (03:38)
[2025-02-08] MEDS: Lactated Ringers 1,000 ML 999 ML IV (07:35)
[2025-02-08] MEDS: LACTATED RINGERS 500 ML 999 ML IV (08:39)
[2025-02-08] MEDS: fentaNYL-bupivacaine (epidural) 100 ML BAG EPIDURAL ×4 (08:39→21:46)
[2025-02-08] MEDS: Lactated Ringers 1,000 ML 200 ML IV ×2 (12:38→17:14)
[2025-02-08] MEDS: Ondansetron 4 MG/2 ML Vial IV (12:45)
[2025-02-08] MEDS: Acetaminophen 500 MG Tablet PO (17:13)
[2025-02-08] MEDS: Oxytocin 15 Units/NS 250ml 15 UNITS/250 ML IV.SOLN 334 UNITS IV (23:07)
[2025-02-08] MEDS: Oxytocin 15 Units/NS 250ml 15 UNITS/250 ML IV.SOLN 83 UNITS IV (23:28)
--- NOTE | 2025-02-08 23:28 | OB.VAGDELI_ITS ---
Assessment & Plan (1) (spontaneous vaginal delivery): (2) Hepatitis C antibody positive: Maternal Data Information Final ETTA: 02/02/25 Gestational age: 40+6 Vaginal Delivery Maternal Presentation Maternal Presentation: Elective Induction Type of Induction: Pitocin and Kitchen Bulb Vaginal Delivery Information Procedure Performed: Spontaneous Vaginal Delivery Surgeon/Practitioner: Brinda Gill Date of Procedure: 02/08/25 Pre-Procedure Diagnosis: term Post-Procedure Diagnosis: Type of anesthesia: Epidural Estimated Blood Loss: 150 cc Time of Delivery: 23:04 Findings Description of procedure: IOL at 40+5 weeks. Dank too much for Cytotec. Kitchen bulb placed. SROM with Kitchen. 3cm at time of Kitchen bulb expelled. Pitocin per protocol. Once complete she pushed for about 2 hours and delivered over an intact perineum. OA with a loose nuchal x1. Reduced prior to delivery. The anterior and posterior shoulders delivered with gentle traction. The cried upon delivery and was placed on the maternal abdomen. The cord was clamped and cut. Cord blood was collected. The placenta delivered spontaneously. A second degree laceration was repaired with 2-0 Vicryl. A left labial laceration was also repaired. Sponge, lap and instrument count were correct. Presentation: Vertex and BIA Amniotic Membrane Rupture Type: Spontaneous Amniotic Fluid Description: Clear Placental Delivery Description: Spontaneous Placenta Disposition: [facility] Specimen collected: Yes Description of specimen(s) removed: cord blood Cord Vessel Description: 3 Vessels Cord Entanglement: Around neck x 1, loose Nuchal Cord Compression: Without compression Infant A Gender: Male (1 minute): 8 (5 minute): 9 Delayed Cord Clamping: Yes Senior [employer] commercial insurance underwriter: No Post Vaginal Deli Medications given after delivery: IV Pitocin Episiotomy Description: None Laceration: Midline and 2nd degree (with left labial) Complication Complications: No
[2025-02-09] VITALS (18 sets, daily range): BP systolic 104–127; BP diastolic 59–73; PULSE 69–106; RESP 14–18; TEMP 36.3–36.6; O2SAT 96–98
[2025-02-09] MEDS: Acetaminophen 500 MG Tablet 1000 MG PO (03:33)
--- NOTE | 2025-02-09 08:03 | PCM.PN.OB ---
Subjective Subjective Doing well. Ambulating and voiding without difficulty. Mild lochia. Bottle feeding. Objective Data Objective Data Vital Signs: Vital Signs Temp Pulse Resp BP Pulse Ox O2 Del Method 97.8 F 99 15 107/73 96 Room Air 02/09/25 05:30 02/09/25 05:32 02/09/25 05:30 02/09/25 05:32 02/09/25 05:31 02/09/25 05:30 Oxygen Delivery Method Room Air Weight: 94.347 kg Body Mass Index (BMI) 33.5 Intake & Output: Intake and Output for Last 24 Hours 02/07/25 02/08/25 02/09/25 23:59 23:59 23:59 Intake Total 4770.20 / 4770.20 250 / 250 Output Total 1700 / 1700 1050 / 1050 Balance 3070.20 / 3070.20 -800 / -800 Lab / Micro Data 02/07/25 20:25 ROS Constitutional Constitutional: Denies headache(s) Cardiovascular Cardiovascular: Denies chest pain or dyspnea Gastrointestinal Gastrointestinal: Denies nausea or vomiting Genitourinary Genitourinary: Denies dysuria Physical Exam Const alert, oriented x3 and no apparent distress General Appearance: cooperative and comfortable Eyes PERRL and EOMs intact bilaterally Resp normal respiratory effort GI soft to palpation and non-tender Uterus Palpation: uterus fundus firm ( below umbilicus) Extremity normal to inspection and full ROM Neuro oriented x3 and CN's II-XII intact bilaterally Psych mental status grossly normal Assessment & Plan (1) (spontaneous vaginal delivery): (2) Hepatitis C antibody positive: PLAN: Plan Routine care
[2025-02-09] MEDS: Ibuprofen 600 MG Tablet PO ×2 (14:57→23:16)
--- NOTE | 2025-02-09 15:45 | CASEMGMT ---
Social Work Assessment Labor and Delivery Unit Patient Address: [address] [place] [address] Phone number: [phone] Date of Referral: 02/07/2025 Time of Referral: 19:46 Referred By: Brinda Gill Date of Intervention: 02/09/2025 Time of Intervention: 15:43 Reason for Referral: Substance Abuse History obtained from: Medical records, mother of baby (MOB) and father of baby (FOB; Ash Jones, age 40).? Household composition: MOB and son, Lisset Jones, born on 02/08/2025. The FOB is currently at [facility] where he has been for the past two and a half months and will remain for the next 4 months.? From there, the FOB will transition to [facility] where he expects to get 1 home pass per week.? Eventually, the FOB desires to be able to live with the MOB and baby. FOB has 2 children from a previous relationship, 16 year old daughter, Lane and 9 year old son, Logan, both of whom live with their mother. Patient's parent/guardian status: MOB and FOB have been together for 4 years and are not . MOB and FOB described a positive relationship with one another and the MOB denied any domestic violence. Medical History: : 1, Para: 1. MOB received mostly routine care through [facility] with a gap in appointments from 27 weeks to 37 weeks where the MOB reported she missed an appointment. Apgars: 8 and 9. Weight: 8 pounds, 7 ounces. Case Packer And Sealer: Dr. Dale Educational Status: MOB and FOB denied any concerns with reading or writing. MOB reported she earned her GED and the FOB earned his High School diploma. Financial Status: MOB and FOB reported their income is sufficient to meet the needs of their family at this time. MOB is currently employed part-time at [employer] in [place] and the FOB is unemployed. MOB reported she gets support from someone and has all of her bills paid and up-to-date. Infant Supplies: MOB and FOB reported they have all the supplies they need for baby at this time including but not limited to: Car seat, bassinet, pack-n-play, crib, diapers, bottles and clothing. Childcare/Caregiver(s):? MOB identified herself as the primary caregiver and stated that ?s paternal grandmother (PGM) will provide childcare during the times when the MOB is working.? MOB stated she is taking 6 weeks off for maternity leave. Transportation:? Neither the MOB nor the FOB are licensed drivers however the MOB reported she has supports that will be able to provide reliable transportation so that she can get to and from all medical appointments. Programs/Agencies Involved: MOB is currently receiving Medicaid for health insurance, food stamps and dykes assistance. WIC is also involved. MOB used to be involved with [facility] as a juvenile. MOB and FOB both have a history of legal involvement.? MOB: previous charge of aggravated trafficking. MOB is currently on probation until May of 2025.? MOB?s chief risk officer was identified as Lorelei Causey. FOB: Also previous charge of aggravated trafficking and is also on probation. FOB indicated he also got a probation violation due to drinking while on probation. Children Services/Legal Issues:? Denied. Behavioral Health Issues:?? Mental Health History: MOB has a history of Bipolar, Major Depressive Disorder, PTSD, and a history of suicidal ideation(SI) with previous inpatient psychiatric placements; placements in 2018 and 2019) MOB has a history of self-injurious behavior which has included cutting. MOB denied any current depression and reported she presented with SI during times when she was in active addiction and stated most of the time she was seeking attention. MOB reported she used to be on medication for her mental health however stopped taking it after she found out she was and reported she feels so much better now that she?s off of her medications.? dairy farmworker urged MOB to monitor mental health closely as often times things can change again once baby has been born which MOB verbalized she understood. Casing Grader administered the Upson Depression Scale (EPDS). MOB?s score was a zero. dairy farmworker provided education on results and what to look out for in the future should this tool be administered again by any other professional which the MOB verbalized she understood. FOB denied any mental health history other than feeling anxious prior to going to the correction facility just because he didn?t know what to expect and was nervous. Patient stated he was prescribed medication for the anxiety which he stated is not working. FOB stated he's less anxious now that he?s in the program and knows what to expect. ?Substance Use History:?? MOB stated she?s done every drug she could ever get her hands on with her drug of choice being heroin. Other drugs have included but were not limited to abuse of meth, oxycodone and fentanyl. MOB has used drugs since the age of 14. MOB has been in and out of detox and has also previously been involved with [facility]. MOB reported she?s been clean from ?hard drugs? since 2022. MOB reported she did still smoke marijuana however stopped as soon as she found out she was . MOB stated she is not going to resume smoking marijuana. FOB also stated he?s abused a range of drugs, used to use cocaine in his 20?s and most recent drugs of choice have been meth (last used in 2022) and alcohol. FOB is an alcoholic.? Family History: Family history for MOB: MOB?s parents are also addicts. Mannington?s maternal grandmother (MGM) was also said to use any drug she could get her hands on but her drug of choice was noted to be meth and heroin.? MGM has been sober for less than a month. Mannington?s maternal grandfather (MGF) is still in active addiction and abuse alcohol and cocaine.? MGF lives in [place] and MOB has minimal contact with the MGF. ?Mannington?s MGM and maternal aunt have a history of depression. Mannington?s MGF has a history of anxiety, depression and bipolar. ?FOB denied any family history of drug or alcohol abuse/abuse or mental health. ??Drug Screens: MOB: Negative. Baby: Meconium results pending. ? Family/Social Stressors: ?MOB and FOB are both recovering addicts, maternal grandparents (MGP?s) are also struggling with addiction. ??MOB and FOB are both on probation, the FOB is currently in a correction facility and from there will transition to the [facility] in [place]. MOB will be living on her own with limited support.? 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 MOB is employed part-time and FOB is unemployed. Finances are limited however MOB and FOB denied any social determinants of health. Support Systems: Ample.? MOB identified her biggest support as the FOB though he will not be present for a while, and ?s paternal grandmother (PGM), paternal grandfather (PGF) and PGF?s girlfriend. Depression/Shaken Baby/Safe Sleeping: dairy farmworker provided verbal and written education on PPD, Safe Sleeping and Shaken Baby.? dairy farmworker educated the MOB about risk factors that can increase chances of PPD. MOB and FOB verbalized an understanding.??? ASSESSMENT:?? MOB and FOB both consented to social work visit.? FOB was released from the correction facility for 48 hours so he could be present for the of his child and has to return to the facility by 11pm on this date. At the time of arrival, the nurse was just finishing up with and placed in the arms of the MOB who was sitting on the couch with the FOB. MOB attempted to feed the formula as she stated was too painful however wouldn?t take bottle despite MOB?s efforts.? dairy farmworker observed positive interaction between the MOB and FOB, both were verbally engaged and cooperative. dairy farmworker also observed positive interaction between the MOB and as MOB was being very gentle and attentive to ?s needs.? At one point during the assessment, the FOB asked the MOB if he could hold and was also observed to be very gentle and attentive to .? Both MOB and FOB looked at often and were ?affectionate/rubbing ?s head.? MOB reported she told her mother that she cannot be a part of ?s life unless she is sober because she doesn?t want her son to grow up in the type of environment she did. FBO presented with a flat affect and stated he feels bad the MOB and will be by themselves. At the end of the assessment, social science teacher requested to speak with the MOB alone which MOB and FOB were both agreeable to. MOB reported feeling safe, denied any previous or current domestic violence, drug or alcohol abuse or unmanaged mental health issues with either herself of the FOB. Safe Plan of Care for related to substance use: SANTOSH has been sober from all drugs with the exception of marijuana for almost 2 years and has since refrained from marijuana use since finding out she was and denied any intentions of resuming marijuana use.? FOB is currently receiving treatment at the correction facility and will continue to receive treatment for addiction once released.? Both MOB and FOB have an assigned chief risk officer who is also monitoring drug and alcohol abuse. ? PLAN:? Baby to be discharged home when ready.? dairy farmworker also provided written information on depression, depression resources and Help Me Grow as additional resources offered by social science teacher which MOB and FOB accepted. No other services requested or indicated. dairy farmworker notified the MOB and FOB social science teacher?s mandate to report marijuana use during which neither were happy about but verbalized they understood. Brinda Bajwa, ADVERTISING SPACE CLERK, LOCAL SALES ASSOCIATE
--- NOTE | 2025-02-09 18:21 | CASEMGMT ---
Social Work: Pharmacy Technician Per Diem made phone contact with Salome at [facility] and made a referral per protocol/marijuana use during as well as the other identified concerns outlined in assessment. Salome reported they will more than likely not open the case. No restrictions on discharge at this time; can be discharged when medically ready. Brinda Bajwa, WIRELESS WATCHER, PAYLOADER MACHINE OPERATOR
[2025-02-10 02:56] VITALS: BP 107/64; PULSE 84; RESP 16; TEMP 36.2; O2SAT 97
[2025-02-10 02:57] VITALS: BP 107/64; PULSE 84
--- NOTE | 2025-02-10 06:11 | PCM.PN.OB ---
Subjective Subjective Doing well. Ambulating and voiding without difficulty. Mild lochia. Bottle feeding. Objective Data Objective Data Vital Signs: Vital Signs Temp Pulse Resp BP Pulse Ox O2 Del Method 97.2 F L 84 16 107/64 97 Room Air 02/10/25 02:56 02/10/25 02:57 02/10/25 02:56 02/10/25 02:57 02/10/25 02:56 02/10/25 02:56 Oxygen Delivery Method Room Air Weight: 94.347 kg Body Mass Index (BMI) 33.5 Intake & Output: Intake and Output for Last 24 Hours 02/08/25 02/09/25 02/10/25 23:59 23:59 23:59 Intake Total 4770.20 / 4770.20 250 / 250 120 / 120 Output Total 1700 / 1700 1050 / 1050 Balance 3070.20 / 3070.20 -800 / -800 120 / 120 Lab / Micro Data 02/07/25 20:25 ROS Constitutional Constitutional: Denies headache(s) Cardiovascular Cardiovascular: Denies chest pain or dyspnea Gastrointestinal Gastrointestinal: Denies nausea or vomiting Genitourinary Genitourinary: Denies dysuria Physical Exam Const alert, oriented x3 and no apparent distress General Appearance: cooperative and comfortable Eyes PERRL and EOMs intact bilaterally Resp normal respiratory effort GI soft to palpation and non-tender Uterus Palpation: uterus fundus firm ( below umbilicus) Extremity normal to inspection and full ROM Neuro oriented x3 and CN's II-XII intact bilaterally Psych mental status grossly normal Assessment & Plan (1) (spontaneous vaginal delivery): (2) Hepatitis C antibody positive: PLAN: Plan Discharge home
--- NOTE | 2025-02-10 06:12 | PCM.DC.SUM ---
Providers Date of Admission: 02/07/25 Date of Discharge: 02/10/25 Primary Care Physician: Alice Primary Care Phys Reason For Visit: VAG Diagnosis Discharge Diagnosis (1) (spontaneous vaginal delivery): Status: Acute Code(s): O80 - Encounter for full-term uncomplicated delivery (2) Hepatitis C antibody positive: Status: Acute Code(s): R76.8 - Other specified abnormal immunological findings in serum Plan Discharge home Medications at Discharge Home Medications ferrous sulfate 325 mg (65 mg iron) tablet,delayed release 325 mg PO DAILY anemia 11/27/24 vit no.95-ferrous fumarate 28 mg-folic acid 800 mcg tablet () 1 tab PO DAILY 11/27/24 ibuprofen 600 mg tablet 600 mg PO Q6H PRN PRN Pain Score 1-10 #30 tabs 02/10/25 Hospital Course Operations None Procedures None Summary of Care Provided Minutes Spent on Discharge: 20 Hospital Course: Kitchen bulb induction. . Uncomplicated . Physical Exam Const alert and no apparent distress Narrative: Fundus firm, below umbilicus. Weight / BMI Weight Weight: 94.347 kg Body Mass Index (BMI) 33.5 ABG / Lab / Microbiology Data 02/07/25 20:25 D/C Instructions May resume sexual activity in: 6 weeks DC O2, CPAP, BIPAP Needs Home O2 Discharge instructions: No Please Follow Up With: Jacinda Vidal MD When: Follow up with our office in 1-2 and 6 weeks or as needed. [phone] Meaningful Use Info Meaningful Use Meaningful Use Diagnoses (Choose all that apply): None applicable Ischemic Stroke Statin Dosing Therapy Reference: STATIN DOSE THERAPY REFERENCE: * Patients > 75 years receive moderate or high dose statin therapy. * Patients 75 years or YOUNGER should receive HIGH intensity statin dose unless contraindicated. You will be required to document reason for non-treatment if statin daily dose does not meet guidelines. HIGH DOSE STATIN THERAPY DAILY Atorvastatin > than or = to 40 mg Rosuvastatin > than or = to 20 mg Amlodipine + Atorvastatin > than or = to 2.5/40 mg Ezetimibe + Simvastatin 10/80 mg Simvastatin 80mg Discharge Plan Admission Admit Date/Time: 02/07/25 19:17 Primary Reason for Your Visit: induction Attending Provider: Brinda Gill Primary Care Provider: Care Physician,No Primary Discharge Orders/Prescriptions Prescriptions: New ibuprofen 600 mg Tablet 600 mg PO Q6H PRN PRN (Reason: Pain Score 1-10) Qty: 30 0RF Continued ferrous sulfate 325 mg (65 mg iron) tablet,delayed release (DR/EC) 325 mg PO DAILY PNV cmb#95-ferrous fumarate-FA [] 28 mg iron- 800 mcg tablet 1 tab PO DAILY Discontinued diphenhydramine HCl [Banophen] 25 mg capsule 25 mg PO QHS Referrals / Follow Up: Care Physician,No Primary [Primary Care Provider] - Disposition Disposition (needs filled in before D/C Order can be placed): Home, Self Care
[2025-02-10] MEDS: Ibuprofen 600 MG Tablet PO (07:47)
[2025-02-10 07:56] VITALS: BP 111/61; PULSE 71; RESP 16; TEMP 36.7
--- NOTE | 2025-02-10 12:49 | CASEMGMT ---
Social work Received call from Nona at [facility]'s Services ([phone]) who asked if this patient was still admitted due to receiving referral from Brinda. SW looked up patient's chart and confirmed that patient had discharged earlier this morning. Nona stated going to speak with patient at patient's home and thanked SW for time. No other needs identified. Arianna Tai, J2EE ARCHITECT, COMPANY ACCOUNTANT
--- NOTE | 2025-03-09 15:34 | CASEMGMT ---
perinatal social worker received written correspondence from [facility] services dated 02/10/25 which stated the referral has been accepted for assessment/investigation. Brinda Bajwa, PLC CONTROLS ENGINEER, DYSLEXIA TEACHER
== END 2025-02-10 09:30 | disposition home or self-care (01) | DRG 560 ==
PROVIDERS: Admitting Provider Obstetrics & Gynecology; Visit Provider Obstetrics & Gynecology
DX: O48.0 Post-term pregnancy (principal); Z37.0 Single live birth; J45.909 Unspecified asthma, uncomplicated; O69.81X0 Labor and delivery complicated by cord around neck, without compression, not applicable or unspecified; O99.892 Other specified diseases and conditions complicating childbirth; R76.0 Raised antibody titer; O70.1 Second degree perineal laceration during delivery; Z3A.40 40 weeks gestation of pregnancy; Z88.0 Allergy status to penicillin; O99.52 Diseases of the respiratory system complicating childbirth; Z87.891 Personal history of nicotine dependence
CPT/HCPCS: 59025; 59050; 80307; 85025; 86780; 86850; 86900; 86901; 99221; A4216; G0378; J2405

== ENCOUNTER 2025-05-28 16:49 | Emergency (ER) | payer MEDICAID, SELFPAY ==
[2025-05-28 16:49] VITALS: BP 128/73; PULSE 77; RESP 18; TEMP 36.4; O2SAT 100; BMI 29.1
--- NOTE | 2025-05-28 17:24 | ED.VIS.GI ---
HPI HPI - GI History of Present Illness Chief Complaint: GI Bleed Informant: patient Abdominal Pain/Flank Pain Onset: Weeks (2) Context: Gradual Onset Timing: Intermittent and Lasts (Approximately 5 minutes) Quality: Burning and Sharp Location: RLQ and LLQ Worsened by: - (Having a bowel movement) Relieved by: Nothing Nausea/Vomiting/Emesis GI Symptom: Positive for Nausea; Negative for Vomiting Diarrhea/Melena/Hematochezia GI Symptom: Positive for Hematochezia; Negative for Diarrhea or Melena Associated Symptoms Associated Symptoms: Negative for Dysuria, Frequency or Hematuria LMP: 05/15/2025 Narrative Narrative: Patient presents with abdominal pain and rectal bleeding that has been constant for the past 2 weeks. Patient states her pain is intermittent and begins just prior to having a bowel movement. Patient describes it as sharp and burning. Patient states it is mainly over the lower abdomen. Patient states she has had blood in her stools. Patient states it is red blood mixed within her stools. Patient denies any melena. Patient denies any fevers or chills. Patient admits to some nausea but denies any vomiting. PFSH PFSH Medical History Bipolar disorder Anxiety Depression Smoker Substance abuse PTSD (post-traumatic stress disorder) Asthma Depression with anxiety Home Medications ?Medication ?Instructions ?Recorded ?Last Taken ?Type ferrous sulfate 325 mg (65 mg 325 mg PO DAILY anemia 11/27/24 02/02/25 History iron) tablet,delayed release vit no.95-ferrous 1 tab PO DAILY 11/27/24 02/07/25 History fumarate 28 mg-folic acid 800 mcg tablet () ibuprofen 600 mg tablet 600 mg PO Q6H PRN PRN Pain Score 02/10/25 Unknown Rx 1-10 #30 tabs hydrocortisone acetate 25 mg 25 mg TX DAILY #12 ea 05/28/25 Unknown Rx rectal suppository (Anusol-HC) Allergy/AdvReac Type Severity Reaction Status Date / Time Penicillins (PCN) Allergy Anaphylaxis Verified 05/28/25 16:50 Family History Sister Diabetes mellitus type 1 Grandfather Heart disease Surgical History no surgical history no surgical history Social History Smoking Status: Former smoker alcohol intake: never substance use type: does not use caffeine: Yes what type of physical activity do you participate in: none seatbelt use: sometimes ROS ROS ED Constitutional Constitutional ED: Denies chills or fever(s) Eyes Eyes: Denies blurry vision or change in vision ENT ENT ED: Reports rhinorrhea; Denies sore throat Cardiovascular Cardiovascular: Denies chest pain or palpitations Respiratory/Chest Respiratory/Chest: Denies cough or dyspnea Gastrointestinal Gastrointestinal: Reports abdominal pain and nausea; Denies vomiting Genitourinary Genitourinary ED: Denies dysuria or hematuria Musculoskeletal Musculoskeletal: Reports back pain; Denies neck pain Integumentary Denies abscess or rash Neurologic Neurologic: Reports headache(s); Denies weakness Allergic/Immunologic Allergic/Immunologic ED: Denies mouth swelling or urticaria EXAM Physical Exam Const Vital Signs: 05/28/25 16:49 05/28/25 18:49 05/28/25 20:00 Temperature 97.6 F L Temperature Source Oral Pulse Rate 77 67 59 L Respiratory Rate 18 16 16 Blood Pressure 128/73 H 117/69 107/86 H Blood Pressure Mean 91 85 93 Pulse Ox 100 98 100 Oxygen Delivery Method Room Air Room Air Room Air 05/28/25 21:09 Temperature 97.6 F L Temperature Source Pulse Rate 62 Respiratory Rate 16 Blood Pressure 112/60 Blood Pressure Mean 77 Pulse Ox 100 Oxygen Delivery Method Positive well nourished and well developed Constitutional Narrative: BMI is 29.1. General Appearance ED: well developed and NAD HEENT Reports moist mucous membranes normocephalic and atraumatic Neck supple and no JVD Resp normal respiratory effort Cardio regular rate and regular rhythm GI non-distended GI Narrative: Rectal exam was performed. There is an external hemorrhoid noted. There is no active bleeding noted. There is small amount of brown stool. There are no masses palpated. Palpation: soft and tender LLQ, RLQ, LUQ, periumbilical and suprapubic Neuro CN's II-XII intact bilaterally, moves all extremities and no sensory deficits noted Sensorium / Orientation: alert Motor Exam: strength 5/5 throughout Psych mental status grossly normal MDM MDM MDM Narrative Medical decision making narrative: Differential diagnosis includes external hemorrhoid, diverticulitis, colitis, urinary tract infection, ectopic , ovarian cyst, pyelonephritis, dehydration, and electrolyte abnormality. CBC will be obtained to assess for leukocytosis and anemia. Comprehensive metabolic profile will be obtained to assess for hepatic function, renal function, and electrolyte abnormality. Urinalysis will be obtained to assess for urinary tract infection and hematuria. Serum hCG will be obtained to assess for . CT scan of the abdomen pelvis will be obtained to assess for diverticulitis, ovarian cyst, and pyelonephritis. History & Record Review Additional record(s) reviewed:: Prior inpatient record, Prior ED visit and Prior labs Lab Data Attestation: I reviewed the patient's lab results. Lab results narrative: CBC was reviewed. Hemoglobin was stable at 12.7 and hematocrit was 37.7. Platelets were normal. Comprehensive metabolic profile was reviewed and was within normal limits. Serum hCG was reviewed and was negative. Urinalysis was reviewed. There is no evidence of urinary tract infection or hematuria. Stool for occult blood was reviewed and was positive. Labs: Laboratory Results - last 24 hr 05/28/25 05/28/25 17:55 18:18 WBC 5.8 RBC 4.39 Hgb 12.7 Hct 37.7 MCV 85.9 MCH 28.9 MCHC 33.7 RDW Std Deviation 38.2 RDW Coeff of Carolyn 12.1 Plt Count 310 MPV 9.9 Immature Gran % (Auto) 0.300 Neut % (Auto) 50.9 Lymph % (Auto) 33.9 [place] % (Auto) 9.2 Eos % (Auto) 5.0 Baso % (Auto) 0.7 Absolute Neuts (auto) 2.9 Absolute Lymphs (auto) 1.95 Nucleated RBC % 0 Sodium 141 Potassium 3.9 Chloride 106 Carbon Dioxide 23.3 Anion Gap 11 BUN 14 Creatinine 0.71 Estim Creat Clear Calc 134.03 Est GFR (MDRD) Non-Af 123 BUN/Creatinine Ratio 19.1 Glucose 99 Calcium 9.6 Total Bilirubin 0.61 AST 23 ALT 24 Alkaline Phosphatase 79 Total Protein 7.1 Albumin 4.3 Globulin 2.7 Albumin/Globulin Ratio 1.6 Serum , Qual NEGATIVE Urine Color Yellow Urine Clarity Clear Urine pH 6.0 Ur Specific [place] 1.025 Urine Protein 15 H Urine Glucose (UA) Normal Urine Ketones Negative Urine Occult Blood 25 H Urine Nitrite Negative Urine Bilirubin Negative Urine Urobilinogen Normal Ur Leukocyte Esterase 100 H Urine RBC 0 SEEN Urine WBC 0-5 SEEN Ur Squamous Epith Cells 0-5 SEEN Urine Bacteria 2+ Urine Mucus 0 SEEN Radiography Diagnostic Testing: Clinical Impression(s) from Imaging Studies Abdomen/Pelvis CT 05/28/25 17:33 IMPRESSION: No acute or active inflammatory intra-abdominal pathology. Reading Location: [facility] CT scan of the abdomen and pelvis was obtained. There is no acute intra-abdominal abnormality noted. There is no free air or free fluid. There is no evidence of bowel obstruction or perforation. This was interpreted by the radiologist and was also independently reviewed by myself. Treatment and Re-Evaluation :: Patient was given IV fluids, morphine, and Zofran. Patient was feeling better on reevaluation. Patient was advised of her findings. Patient was advised that she could be bleeding from an external hemorrhoid. With normal hemoglobin and hematocrit and normal vital signs, I did not feel the patient needs to be admitted to the hospital for further evaluation. Patient was instructed to follow-up with her primary care physician in 5 to 7 days for further evaluation. Patient was instructed to return if worse in any way. Patient understood and was agreeable with the plan. All questions were answered. Discharge Plan Triage Chief Complaint: GI Bleed ED Provider: Sajan Allen Dx/Rx/DC Orders Clinical Impression: Lower gastrointestinal bleed, External hemorrhoid Instructions: ED Lower GI Bleeding (Stable) Prescriptions: New hydrocortisone acetate [Anusol-HC] 25 mg suppository 25 mg TX DAILY Qty: 12 0RF No Action ferrous sulfate 325 mg (65 mg iron) tablet,delayed release (DR/EC) 325 mg PO DAILY PNV cmb#95-ferrous fumarate-FA [] 28 mg iron- 800 mcg tablet 1 tab PO DAILY ibuprofen 600 mg Tablet 600 mg PO Q6H PRN PRN (Reason: Pain Score 1-10) Qty: 30 0RF Primary Care Provider: Care Physician,No Primary Referrals: Candis Magallon DO [Med Staff - Active Staff] - 5-7 Days Care Physician,No Primary [Primary Care Provider] - Print Language: Lao Disposition Disposition: Home, Self Care Discharge Date/Time: 05/28/25 21:14
--- NOTE | 2025-05-28 17:33 | CT_ITS ---
PROCEDURE: ABDOMEN/PELVIS W IV CONT ONLY 05/28/2025 REASON FOR EXAM: ABDOMINAL PAIN TECHNIQUE: ABDOMEN/PELVIS W IV CONT ONLY Coronal and Sagittal reconstruction series were provided. CONTRAST: Isovue 300 VOLUME: 75 mL One or more dose reduction techniques were used (e.g., Automated exposure control, adjustment of the mA and/or kV according to patient size, use of iterative reconstruction technique. RADIATION DOSE SUMMARY: DLP: 862.91 mGycm COMPARISON: Abdominal CTs dated 08/11/2019, 09/19/2018. FINDINGS: Lung bases: Clear. Liver: No significant abnormality. Subcentimeter circumscribed presumed benign hepatic cysts in the anterior left lobe and posterior right lobe of the liver. Gallbladder: Unremarkable. No biliary ductal dilatation. Spleen: Normal in size and morphology. Pancreas: Unremarkable. Adrenals: Unremarkable. Kidneys: Normal, symmetric enhancement. No urolithiasis or hydronephrosis. Bladder: Unremarkable. Reproductive Organs: Grossly normal appearance of the uterus and adnexae. Bowel: Unremarkable. No obstruction or active inflammatory process. Normal appendix. Lymph nodes: No enlarged abdominopelvic lymph nodes. Vasculature: Normal course and caliber of the abdominal aorta and IVC. Peritoneum / Retroperitoneum: No ascites or free air. Bones: Unremarkable. CT/Abdomen/Pelvis W IV Cont ONLY IMPRESSION: No acute or active inflammatory intra-abdominal pathology. Reading Location: [id number]
--- NOTE | 2025-05-28 18:02 | ED.RN ---
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 pt states she used to inject fentanyl. this rn informs patient that the doctor had ordered her morphine to have and if she wanted something else this rn can ask the doctor to be sure she stays sober. pt denies and stated (it will be fine as long as i have a note from the hospital that i had it.)
[2025-05-28] MEDS: 0.9% Normal Saline (1000mL) 1,000 ML 999 ML IV (18:09)
[2025-05-28 18:17] LABS: Hematocrit 37.7 % (37-47); Hemoglobin 12.7 g/dL (12.0-15.0); Immature Granulocytes Count 0.020 X10^3/uL (0.0-0.0); Mean Corp Hgb Conc 33.7 g/dL (32-36); Mean Corpuscular Volume 85.9 fL (81-99); Mean Platelet Vol. 9.9 fl (6.2-12.0); NRBC Flagged by Analyzer 0 % (0-5); Platelet Count 310 K/mm3 (150-450); RBC Distribution Width CV 12.1 % (11.6-14.6); RBC Distribution Width SD 38.2 fl (35.1-43.9); Red Blood Count 4.39 M/mm3 (4.2-5.4); White Blood Count 5.8 K/mm3 (4.4-11.0)
[2025-05-28 18:22] LABS: Mucous, Urine 0 SEEN /hpf (<or=2+); Red Blood Cells-Urine 0 SEEN /hpf (0-5)
[2025-05-28 18:31] LABS: AST(SGOT) 23 U/L (<=31); Alanine Aminotransfer ALT/SGPT 24 U/L (<=34); Albumin, Serum 4.3 g/dL (3.5-5.0); Alkaline Phosphatase 79 U/L (35-104); Anion Gap 11 (5-15); BUN 14 mg/dL (4-19); BUN/Creat Ratio 19.1 RATIO (10-20); Calcium,Total 9.6 mg/dL (7.6-11.0); Carbon Dioxide 23.3 mmol/L (21.0-32.0); Chloride 106 mmol/L (98-108); Estimated Creatinine Clearance 134.03 ml/min (50-250); Globulin 2.7 g/dL (2.2-4.2); Glucose 99 mg/dL (70-99); Potassium 3.9 mmol/L (3.3-5.1)
[2025-05-28 18:37] LABS: Internal QC Validated? YES +Cl - CLEAR BKGD; Pregnancy, Serum, hCG Quali. NEGATIVE Negative; Record Kit Lot#, Serum Preg. 962302
[2025-05-28 18:49] VITALS: BP 117/69; PULSE 67; RESP 16; O2SAT 98
[2025-05-28 18:57] LABS: Color, Urine Yellow (Yellow); Glucose, Dipstick Normal (Normal); Ketone-Dipstick Negative (Negative); Leukocyte Esterase-Dipstick 100 /ul (Negative); Nitrite-Dipstick Negative (Negative); Occult Blood-Urine 25 /ul (Negative); Protein-Dipstick 15 mg/dl (Negative); Specific Gravity, Urine 1.025 (1.002-1.030); Urine Bilirubin Dipstick Negative (Negative)
[2025-05-28 19:19] LABS: Squamous Epithelial Cells - UA 0-5 SEEN /hpf (5-10)
[2025-05-28 20:00] VITALS: BP 107/86; PULSE 59; RESP 16; O2SAT 100
[2025-05-28 21:09] VITALS: BP 112/60; PULSE 62; RESP 16; TEMP 36.4; O2SAT 100
== END 2025-05-28 21:14 | disposition home or self-care (01) ==
PROVIDERS: Emergency Provider Emergency Medicine; Visit Provider Emergency Medicine
DX: K62.5 Hemorrhage of anus and rectum (principal); Z87.891 Personal history of nicotine dependence; R11.0 Nausea; K64.4 Residual hemorrhoidal skin tags
CPT/HCPCS: 74177; 80053; 81001; 82274; 84703; 85025; 96361; 96374; 96375; 99284; Q9967; A4216; J2405